=== PATIENT | male | born 1955 | race Caucasian/White ===

== ENCOUNTER 2020-05-01 15:15 | Outpatient (CLI) | payer OTHER, SELFPAY | END 2020-05-01 15:16 | disposition home or self-care (01) | LOC: ANHCOVIDVC 15:15 | DX: Z23 Encounter for immunization (principal) | CPT/HCPCS: 0001A; 91300 ==

== ENCOUNTER 2020-05-22 15:17 | Outpatient (CLI) | payer OTHER, SELFPAY | END 2020-05-22 15:18 | disposition home or self-care (01) | LOC: ANHCOVIDVC 15:17 | DX: Z23 Encounter for immunization (principal) | CPT/HCPCS: 0002A; 91300 ==

== ENCOUNTER 2020-10-12 09:13 | Inpatient (IN) | payer MEDICARE, OTHER, SELFPAY ==
[2020-10-12] VITALS (32 sets, daily range): BP systolic 119–151; BP diastolic 65–109; PULSE 72–91; RESP 12–21; TEMP 36.1–37.4; O2SAT 95–100; BMI 26.6
--- NOTE | ~2020-10-12 | CT_ITS ---
EXAMINATION: CT abdomen pelvis w con DATE: 10/12/2020 12:33 INDICATION: Vomiting. TECHNIQUE: Computed tomography (CT) of the abdomen and pelvis was performed with 100 cc Omnipaque 350 intravenous contrast. The dose-length product was 418.29 mGy-cm. Automated exposure control and iter ative reconstruction technique were employed. COMPARISON: CT dated 03/31/2014 FINDINGS: Trace pericardial effusion. There is hiatal hernia with fluid in the distal esophagus, cons istent with reflux. Heart size normal. No significant vascular abnormality. Fatty infiltration of the liver. There is a cyst of the left hepatic lobe. There is a small hypervasc ular lesion of the spleen measuring 1.3 cm, likely benign. Gallbladder is present. The pancreas, adre nal glands and kidneys are unremarkable. Nonobstructive bowel gas pattern. Colonic diverticulosis wit hout evidence for diverticulitis. There is an accessory splenule. There are radiation therapy implant s in the prostate bed. Small right pleural effusion effusion. Moderate lumbar spondylosis. No free ai r. There is a small amount of fluid in the left paracolic gutter, although there is no significant ad jacent inflammatory changes in the colon. There is calcified nodule in the left pelvis anteriorly, li sangeeta sequela of epiploic appendagitis. IMPRESSION: 1. No acute abdominal abnormality identified. 2: Hiatal hernia with fluid in the distal esophagus, compatible with reflux. 3: Small pericardial and right pleural effusions. Reviewed, dictated and finalized at location A.
--- NOTE | ~2020-10-12 | CT_ITS ---
EXAMINATION: CT brain wo con DATE: 10/12/2020 16:54 INDICATION: Confusion. Severe hyponatremia TECHNIQUE: Computed tomography (CT) of the head was performed without intravenous contrast. Sagittal and coronal reconstructions were performed. The mA was adjusted according to patient size. Iterative reconstruction technique was employed. The dose-length product was 605.33 mGy-cm. COMPARISON: None FINDINGS: No acute intracranial hemorrhage, acute infarction or abnormal extra axial fluid collection. There is mild scattered white matter hypoattenuation consistent with chronic small vessel ischemic disease. V entricles are normal and symmetric. No mass/mass effect. The orbits, paranasal sinuses and mastoid ai r cells are normal. IMPRESSION: 1. Mild scattered white matter hypoattenuation consistent with chronic small vessel ischemic disease. No acute intracranial process. Reviewed, dictated and finalized at location A. IMPRESSION: 1. Mild scattered white matter hypoattenuation consistent with chronic small ve ssel ischemic disease. No acute intracranial process.
--- NOTE | ~2020-10-12 | MR_ITS ---
EXAMINATION: MR brain/brain stem wo con DATE: 10/18/2020 15:08 INDICATION: Weakness of dorsiflexion of the left foot. TECHNIQUE: Magnetic resonance imaging (MRI) of the brain and brainstem was performed without intraven ous contrast. Sequences included sagittal and axial T1-weighted FSE, axial diffusion-weighted FS EPI, axial T2*-weighted GRE, axial T2-weighted FLAIR Propeller, and axial T2-weighted Propeller. Apparent diffusion coefficient (ADC) maps were created. COMPARISON: Head CT 10/12/2020 FINDINGS: There is no intracranial hemorrhage, acute infarction, or abnormal intracranial mass lesion . There are scattered areas of nonspecific increased T2-weighted signal intensity in the cerebral whi te matter, which is within normal limits for the patient's age. The ventricles are normal in size. Th e orbits are normal. The mastoid air cells are normal. There is mild mucosal thickening in the ethmoi d sinuses. IMPRESSION: 1. Normal aging brain. Reviewed, dictated and finalized at location A. IMPRESSION: 1. Normal aging brain.
--- NOTE | ~2020-10-12 | US_ITS ---
EXAMINATION: US venous doppler [facility] DATE: 10/18/2020 14:44 INDICATION: Left calf pain. TECHNIQUE: Grayscale ultrasound images without and with compression and Doppler ultrasound images of the bilateral lower extremity veins were obtained. COMPARISON: None. FINDINGS: The visualized portions of right common femoral vein, profunda (deep) femoral vein, femoral vein, pop liteal vein, peroneal veins, posterior tibial veins, and greater saphenous vein outflow are patent. The visualized portions of left common femoral vein, profunda femoral vein, femoral vein, popliteal v ein, peroneal veins, posterior tibial veins, and greater saphenous vein outflow are patent. IMPRESSION: 1. No deep venous thrombosis. Reviewed, dictated and finalized at location A.
[2020-10-12 09:58] LABS: Basophils Percent Auto 0.2 % (0.2-1.2); Eosinophils Percent Auto 0.1 % (0-4.4); Hematocrit 41.3 % (42.0-52.0); Hemoglobin 15.5 g/dL (14.0-18.0); Immature Granulocyte Absolute 0.08 K/mm3 (0.00-0.031); Immature Granulocyte Percent A 0.4 % (0-0.5); Lymphocytes Absolute Auto 0.76 K/mm3 (0.9-3.2); Lymphocytes Percent Auto 4.1 % (18.3-44.2); Mean Corpuscular HGB Conc 37.5 g/dl (32-36); Mean Corpuscular Hemoglobin 30.5 pg (26-34); Mean Corpuscular Volume 81.3 fl (80-100); Mean Platelet Volume 11.4 fl (7.4-10.4); Monocytes Absolute Auto 1.3 K/mm3 (0.1-0.6); Neutrophils Absolute Auto 16.6 K/mm3 (1.3-6.7); Neutrophils Percent Auto 88.2 % (45.5-73.1); Platelet Count Result 254 k/mm3 (150-375); Red Blood Count 5.08 M/mm3 (4.6-6.20); Red Cell Distribution Width 11.3 % (11.5-14.5); White Blood Count 18.7 K/mm3 (4.5-10.0)
[2020-10-12 10:09] LABS: Alanine Aminotransferase 25 U/L (4-50); Albumin Level 4.6 g/dL (3.5-5.1); Alkaline Phosphatase 79 U/L (38-126); Anion Gap 10 mmol/L (8-16); Aspartate Amino Transferase 39 U/L (17-59); Bilirubin,Total 2.2 mg/dL (0.2-1.3); Blood Urea Nitrogen 12 mg/dL (9-20); Calcium 8.7 mg/dL (8.4-10.2); Carbon Dioxide 20 mmol/L (22-30); Chloride 74 mmol/L (98-107); Estimated CRCL calculation 92 ml/min; Estimated Glomerular Filt Rate > 60; Glucose 142 mg/dL (65-110); Lipase 37 U/L (23-300); Potassium 4.1 mmol/L (3.4-5.0); Sodium 104 mmol/L (137-145)
[2020-10-12] MEDS: SODIUM CHLORIDE 0.9% IV 1,000 ML 999 ML IV CONT (12:00)
--- NOTE | 2020-10-12 12:07 | ECG_ITS ---
Measurements Intervals [place] Rate: 79 P: 58 ID: [id number] QRS: 16 QRSD: 116 T: 30 QT: 382 QTc: 439 Interpretive Statements SINUS RHYTHM ATRIAL AND VENTRICULAR PREMATURE COMPLEXES INTRAVENTRICULAR CONDUCTION DELAY EARLY PRECORDIAL R/S TRANSITION ST ELEVATION IN ANTEROLATERAL LEADS- PROBABLY EARLY REPOLARIZATION ABNORMALITY BASELINE ARTIFACT- I, II, III, AVR, AVL, AVF, V1-V6 BORDERLINE ECG Electronically Signed On 10-13-2020 12:17:17 CDT by Jg Ba D.O.
--- NOTE | 2020-10-12 12:14 | PC.NURSE ---
Called lab, talked to Amaya and added on BMP and Trop I baseline at 12:13
[2020-10-12 12:16] LABS: Add Urine Microscopic? YES; Appearance Urine Clear (Clear); Bilirubin Urine Negative (Negative); Blood Urine 2+ (Negative); Color Urine Yellow (Yellow); Glucose Urine UA 1+ mg/dL (Negative); Ketones Urine 2+ mg/dL (Negative); Leukocyte Esterase Ur Trace LEU/UL (Negative); Mucus Urine Rare /lpf; Nitrate Urine Negative (Negative); Protein Urine 1+ mg/dL (Negative); RBC Urine 51-75 /hpf (0-2); Specific Grav Ur 1.023 (1.001-1.035); Squamous Epithelial Cell Urine Rare /hpf (Few); Urobilinogen Urine Negative mg/dL (<2.0)
--- NOTE | 2020-10-12 12:30 | ED.GENADULT ---
HPI - General Adult General Chief complaint: Nausea/Vomiting/Diarrhea Stated complaint: N/V Time Seen by Provider: 10/12/20 11:49 Source: patient and family History of Present Illness HPI narrative: Patient is a 64 y/o male complaining of nausea and vomiting starting 2 days ago. He states that he is vomiting up some dark, brown material. He vomited 7-8 times during last 24 hours. There is no known alleviating or exacerbating factor. He denies any abdominal pain or diarrhea. Of note, he had Urolift procedure at [facility] 6 days ago. Related Data Allergies Allergy/AdvReac Type Severity Reaction Status Date / Time Beef Containing Products Allergy Severe Anaphylaxis Verified 10/12/20 18:05 Ftqasazfw-Cyanz-6,3-Galactose Allergy Severe Anaphylactic Verified 10/12/20 13:46 (Alph Shock erythromycin base Allergy Unknown Unknown Verified 10/12/20 12:27 Alpha Gall Allergy Severe Anaphylaxis Uncoded 10/12/20 12:27 White Fish Allergy Severe Anaphylactic Uncoded 02/24/18 14:18 Shock Review of Systems Constitutional: Constitutional: Denies chills, Denies fever(s), Denies headache(s) and Denies weakness Eyes: Eyes: Denies blurry vision ENT: Denies headache(s) and Denies neck pain Cardiovascular: Cardiovascular: Denies chest pain and Denies dyspnea Respiratory: Respiratory: Denies cough and Denies dyspnea Gastrointestinal: Gastrointestinal: Denies abdominal pain, Denies diarrhea, Reports nausea and Reports vomiting Genitourinary: Genitourinary: Denies hematuria and Denies dysuria Musculoskeletal: Musculoskeletal: Denies back pain and Denies neck pain Neurologic: Denies headache(s) and Denies weakness [facility] Past Medical History Medical History (Updated 10/12/20 @ 18:07 by Laly Johnson MD) Enlarged prostate Family History Family History Other Asthma Cerebrovascular accident Family history of congestive heart failure Family history of mental disorder Social History Social History Smoking status: Never smoker Alcohol intake: current Drinks per week: 5 Substance use: never Substance use type: does not use Gender identity (if verbalized by the patient): Male Sexual Orientation (if Verbalized by the Patient): Straight or Heterosexual Spiritual care concerns: No Exam Const: General: no acute distress and well developed Orientation/consciousness: oriented to person, oriented to place, oriented to time and patient oriented x3 HENMT: Head: normocephalic Ears: external ears normal General nose exam: Normal external nose present Eyes: General: appearance normal, both eyes and all related structures Conjunctivae: conjunctivae normal Neck: Neck: normal visual inspection and full ROM Chest: Chest palpation & inspection: normal inspection of the chest and no tenderness Resp: Effort & Inspection: normal respiratory effort Auscultation: clear to auscultation bilaterally Cardio: Rate: regular rate Rhythm: regular rhythm GI: GI Palp: No abdominal tenderness and Yes Soft to palpation Skin: General skin exam: normal color and turgor normal Neuro: General: oriented to person, oriented to place, oriented to time and patient oriented x3 Cognition (Neuro): normal cognition Extrem: General: normal to inspection, full ROM and no pedal edema Psych: Appearance: grossly normal Mental Status: mental status grossly normal Affect: normal affect Course Consultations Consultation #1: Discussed with Dr. Springer (urology) at [facility]. He states that patient does not requiring transfer from urology standpoint. Date: 10/12/20 Time: 15:28 Consultation #2: Discussed with INEZ Gonzalez, who agrees to admit. Date: 10/12/20 Time: 16:25 Vital Signs Vital signs: Vital Signs Temperature 36.1 C L 10/12/20 09:21 Pulse Rate 77 10/12/20 09:21 Respiratory Rate 16 10/12/20 09:21 Blood Pressure 142/109 H 08
[2020-10-12 12:34] LABS: Anion Gap 9 mmol/L (8-16); Blood Urea Nitrogen 11 mg/dL (9-20); Calcium 8.7 mg/dL (8.4-10.2); Carbon Dioxide 21 mmol/L (22-30); Chloride 75 mmol/L (98-107); Estimated CRCL calculation 106 ml/min; Estimated Glomerular Filt Rate > 60; Glucose 141 mg/dL (65-110); Potassium 4.1 mmol/L (3.4-5.0); Sodium 105 mmol/L (137-145)
[2020-10-12 12:41] LABS: Troponin I < 0.012 ng/mL (0.000-0.034)
[2020-10-12] MEDS: PANTOPRAZOLE SODIUM IV 40 MG VIAL IV PUSH (12:44)
[2020-10-12] MEDS: ONDANSETRON INJ 4 MG/2 ML VIAL IV PUSH (14:56)
[2020-10-12] MEDS: SODIUM CHLORIDE 0.9% IV 1,000 ML 150 ML IV CONT ×2 (16:00→22:35)
[2020-10-12 16:34] LABS: Troponin I 0.012 ng/mL (0.000-0.034)
--- NOTE | 2020-10-12 17:40 | ADMGEN ---
This patient, Savage Vallecillo, was admitted to IMU Room 204-01 @ 1720. Patient/family oriented to hospital policies and general routines including ID bracelet, bed and alarms, visiting hours, pain management, procedures, bathroom and other care routines, personal items, smoking policy, room service/diet, and visiting hours. IVF infusing at NS 150cc/hr. Information on how to activate the Rapid Response Team has been discussed. Patient/Family are encouraged to report perceived risks to care and to ask questions if they do not understand what they are told or what they should do.
--- NOTE | 2020-10-12 17:46 | PM.IMHP ---
H&P: HPI History of Present Illness Date/Time: 10/12/20 17:46 Savage underwent a UroLift procedure at [facility] on MondayOctober 06 due to his BPH and chronic urinary retention. He also takes daily Flomax. He was encouraged to hydrate well and started drinking approximately 18 oz of water Q 1-1.5 hours according to his and the patient report as well. At this rate of water intake, he could have easily taken in more than 200 oz of water on a daily basis. Savage and his stated that he consumed this amount of water starting from 3:00 p.m. Monday until Monday when he started vomiting, having nausea, and dizziness. He has been nauseated and vomitting for the last 2-3 days, since Monday, with no relief, so he came to the ED today. He was started on IV Protonix b.i.d. at his ED admission. On Monday after the procedure he admitted to having 2-3 bowel movements that were formed but were green in color. Lipase was WNL. He is currently not having any nausea or vomiting or diarrhea. He also stood for myself and the nurse and did not have any dizziness or lightheadedness or difficulty standing to change into his hospital gown. Will check orthostatic BPs. Troponins x2 were normal. Lactic 1.[address] was completed and did not show any acute changes or shifts. I have ordered bed rest and instructed the patient and his how he is at risk to fall and must not get out without assistance at all times. Will continue his sodium chloride IV fluids at 150 mils an hour. His sodium is coming up slowly from 104 at 10:00 a.m. this morning to 107 at 6:00 p.m. tonight. Morning labwork ordered. Traffic Workforce Representative consulted. Patient placed on Telemetry monitoring. Phos and mag also checked. 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 This has been added to his allergy list as well as nursing communication instructions provided. He does best with chicken and turkey, and must avoid all other meats. If exposed to that those substances, he will develop hives, progressing to difficulty breathing and anaphylactic shock. I have added IV Benadryl and Claritin p.r.n. Patient has been admitted as IN PATIENT and to be treated for severe hyponatremia, leukocytosis, nausea vomiting and dehydration. Since he had a recent surgical procedure last week, Blood cultures have been ordered, urine cultures are pending. He is afebrile and not tachycardic.No antibiotics at this time. Chief Complaint: Nausea, Vomiting, Hyponatremia Review of Systems Review of Systems: All systems reviewed & are unremarkable except as noted in HPI and below Constitutional: Constitutional: Reports as per HPI, Denies chills, Denies fever(s), Denies headache(s) and Reports weakness Eyes: Eyes: Reports as per HPI and Denies blurry vision ENT: Reports as per HPI, Reports Normal hearing present, Denies headache(s), Denies epistaxis, Denies nasal congestion, Denies neck pain and Denies tinnitus Cardiovascular: Cardiovascular: Reports as per HPI, Denies chest pain, Denies pedal edema, Denies leg edema, Reports lightheadedness and Denies dyspnea Respiratory: Respiratory: Reports as per HPI, Denies chest congestion, Denies cough, Denies hemoptysis, Denies dyspnea, Denies dyspnea on exertion and Denies wheezing Gastrointestinal: Gastrointestinal: Reports as per HPI, Denies abdominal pain, Denies melena, Denies hematochezia, Denies constipation, Denies diarrhea, Reports nausea, Reports vomiting and Denies hematemesis Genitourinary: Genitourinary: Reports as per HPI, Denies hematuria, Denies dysuria and Denies urinary urgency Musculoskeletal: Musculoskeletal: Reports as per HPI, Denies back pain and Denies neck pain Integumentary/Breasts: Skin/Breast: Reports as per HPI Neurologic: Reports as per HPI, Denies confusion, Denies headache(s), Denies numbness and De
[2020-10-12 18:25] LABS: Lactic Acid Reflex 1.1 mmol/L (0.7-2.1)
[2020-10-12 18:36] LABS: Anion Gap 9 mmol/L (8-16); Blood Urea Nitrogen 10 mg/dL (9-20); Calcium 8.3 mg/dL (8.4-10.2); Carbon Dioxide 19 mmol/L (22-30); Chloride 79 mmol/L (98-107); Estimated CRCL calculation 124 ml/min; Estimated Glomerular Filt Rate > 60; Glucose 94 mg/dL (65-110); Magnesium 1.6 mg/dL (1.6-2.3); Potassium 4.1 mmol/L (3.4-5.0); Sodium 107 mmol/L (137-145)
--- NOTE | 2020-10-12 18:40 | PM.CNNEP ---
Assessment and Plan Assessment and plan (1) Hyponatremia: Code(s): E87.1 - Hypo-osmolality and hyponatremia Status: Acute Assessment and Plan: the patient has a very low sodium level. This is acute on chronic hyponatremia I suspect. The patient had a low sodium back in 2013 suggesting that he has had low sodiums for a long time. Etiology of the chronic hyponatremia is unclear. He is on no medications that would do this. He has no history of cancer. 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 He does not have any pulmonary conditions. The patient has acute hyponatremia on top of the chronic hyponatremia. This may be due to a combination of: Lower threshold for free water retention because of the chronic hyponatremia. excess water drinking after the operative procedure. Discussing the matter with the patient and his , he was drinking about 3 quarts per day. This should be easily tolerated in a healthy person. However because of his former hyponatremia, he probably had a Lower free water excretory capacity. He had discomfort which may cause some pain related hyponatremia. then he had nausea and vomiting with diarrhea leading to dehydration. He has surprisingly few symptoms from this low sodium. So I do not think his sodium was normal 36 hours ago when he started having the GI symptoms. I suspect he started with a mildly low sodium and this worsened over the week of water drinking and then worsened even more with the nausea vomiting and diarrhea. So the gradual reduction of the sodium has resulted in few symptoms. The patient and say that his symptoms are better now than they were this morning after he got some IV fluids. indeed the sodium has come up from 104 to 107. So I think we will continue the IV fluids and check another sodium at 10 and see where we are. I discussed with the patient and with the nurse that if he suddenly makes a huge volume of urine then he would be auto correcting in which case we would have to watch the sodium more carefully and possibly give DDAVP to slow down the correction. (2) Nausea and vomiting: Qualifiers: Vomiting Intractability: unspecified Vomiting type: unspecified Qualified Code(s): R11.2 - Nausea with vomiting, unspecified Code(s): R11.2 - Nausea with vomiting, unspecified Status: Acute Assessment and Plan: The patient has nausea vomiting and diarrhea. Possibly this is a GI bug. Evaluation is underway (3) Enlarged prostate: Code(s): N40.0 - Benign prostatic hyperplasia without lower urinary tract symptoms Status: Inactive Assessment and Plan: he had the Urolift procedure. (4) GERD (gastroesophageal reflux disease): Code(s): K21.9 - Gastro-esophageal reflux disease without esophagitis Status: Acute Assessment and Plan: He is on a PPI (5) Hyperlipidemia: Code(s): E78.5 - Hyperlipidemia, unspecified Status: Acute Assessment and Plan: he is on atorvastatin History of Present Illness Reason for Consult Consult date: 10/12/20 Chief Complaint Chief complaint: hyponatremia History of Present Illness Narrative: Savage is a very pleasant 64-year-old gentleman who has GERD, BPH, hyperlipidemia, hyponatremia. Last Monday the patient had a Urolift procedure. After the procedure the patient was told to drink plenty of fluid. So he drank 18 oz of water every hour for several hours per day. The patient says that he was making a lot of urine. He says the urinary flow has been pretty good. 2 days ago the patient developed nausea vomiting and diarrhea. Yesterday the patient was somewhat shaky and his mental processing was not quite as good as it usually is. He was oriented but it just took a little bit longer for him to think about things. This morning the patient was very shaky and had a tremor. They called the urology group and we
--- NOTE | 2020-10-12 19:59 | PHAR ---
THE FOLLOWING HOME MEDS HAVE BEEN VERIFIED BY PHARMACY PANTOPRAZOLE 40 MG TABS ATORVASTATIN 10 MG TAB QVAR REDIHALER 80 MCG/ACTUATION MONTELUKAST 10 MG TABS TAMSULOSIN 0.4 MG CAP
[2020-10-12] MEDS: PANTOPRAZOLE 40 MG TABLET PO (22:00)
[2020-10-12] MEDS: MONTELUKAST SODIUM 10 MG TABLET PO (22:00)
[2020-10-12] MEDS: MONTELUKAST SODIUM 10 MG TABLET 1 EACH PO (22:34)
[2020-10-12] MEDS: PANTOPRAZOLE 40 MG TABLET 1 EACH PO (22:34)
[2020-10-12 23:25] LABS: Anion Gap 8 mmol/L (8-16); Blood Urea Nitrogen 10 mg/dL (9-20); Calcium 7.9 mg/dL (8.4-10.2); Carbon Dioxide 19 mmol/L (22-30); Chloride 79 mmol/L (98-107); Estimated CRCL calculation 106 ml/min; Estimated Glomerular Filt Rate > 60; Glucose 93 mg/dL (65-110); Potassium 3.7 mmol/L (3.4-5.0); Sodium 106 mmol/L (137-145)
[2020-10-13] VITALS (17 sets, daily range): BP systolic 117–162; BP diastolic 57–79; PULSE 64–90; RESP 14–20; TEMP 36.3–36.9; O2SAT 96–100
[2020-10-13 02:17] LABS: Anion Gap 6 mmol/L (8-16); Blood Urea Nitrogen 11 mg/dL (9-20); Calcium 7.8 mg/dL (8.4-10.2); Carbon Dioxide 21 mmol/L (22-30); Chloride 80 mmol/L (98-107); Estimated CRCL calculation 124 ml/min; Estimated Glomerular Filt Rate > 60; Glucose 97 mg/dL (65-110); Potassium 3.6 mmol/L (3.4-5.0); Sodium 107 mmol/L (137-145)
--- NOTE | 2020-10-13 03:32 | PC.NURSE ---
spoke to Hitesh about NA+ level. Will continue to monitor calling him back if it goes over 110 and decrease fluids to 75mls.
[2020-10-13 04:32] LABS: Thyroid Stimulating Hormone Reflex 0.788 uIU/mL (0.465-4.68)
[2020-10-13 05:05] LABS: Basophils Percent Auto 0.1 % (0.2-1.2); Eosinophils Percent Auto 0.4 % (0-4.4); Hematocrit 35.7 % (42.0-52.0); Hemoglobin 13.2 g/dL (14.0-18.0); Immature Granulocyte Absolute 0.04 K/mm3 (0.00-0.031); Immature Granulocyte Percent A 0.4 % (0-0.5); Lymphocytes Absolute Auto 0.88 K/mm3 (0.9-3.2); Lymphocytes Percent Auto 9.8 % (18.3-44.2); Mean Corpuscular Hemoglobin 30.6 pg (26-34); Mean Corpuscular Volume 82.6 fl (80-100); Mean Platelet Volume 11.6 fl (7.4-10.4); Monocytes Absolute Auto 1.1 K/mm3 (0.1-0.6); Monocytes Percent Auto 12.1 % (2.6-8.5); Neutrophils Absolute Auto 6.9 K/mm3 (1.3-6.7); Neutrophils Percent Auto 77.2 % (45.5-73.1); Platelet Count Result 187 k/mm3 (150-375); Red Blood Count 4.32 M/mm3 (4.6-6.20); Red Cell Distribution Width 11.6 % (11.5-14.5)
[2020-10-13 05:26] LABS: Alanine Aminotransferase 21 U/L (4-50); Alkaline Phosphatase 54 U/L (38-126); Anion Gap 6 mmol/L (8-16); Aspartate Amino Transferase 37 U/L (17-59); Bilirubin,Total 1.3 mg/dL (0.2-1.3); Blood Urea Nitrogen 11 mg/dL (9-20); Calcium 7.5 mg/dL (8.4-10.2); Carbon Dioxide 22 mmol/L (22-30); Chloride 82 mmol/L (98-107); Estimated CRCL calculation 106 ml/min; Estimated Glomerular Filt Rate > 60; Glucose 91 mg/dL (65-110); Phosphorus 2.6 mg/dL (2.5-4.5); Potassium 3.4 mmol/L (3.4-5.0); Sodium 110 mmol/L (137-145)
[2020-10-13] MEDS: SODIUM CHLORIDE 0.45% 1,000 ML 75 ML IV CONT (07:00)
--- NOTE | 2020-10-13 07:00 | ECG_ITS ---
Measurements Intervals [place] Rate: 65 P: 8 GA: 194 QRS: -8 QRSD: 97 T: 32 QT: 384 QTc: 401 Interpretive Statements SINUS RHYTHM POSSIBLE LEFT ATRIAL ENLARGEMENT EARLY PRECORDIAL R/S TRANSITION ST ELEVATION IN DIFFUSE LEADS, PROBABLY EARLY REPOLARIZATION BORDERLINE ECG Electronically Signed On 10-13-2020 10:27:20 CDT by Jg Ba D.O.
--- NOTE | 2020-10-13 07:12 | PM.IMPN ---
Progress Note: A&P Assessment and Plan (1) Status post urological surgery: Code(s): Z98.890 - Other specified postprocedural states Status: Acute Assessment and Plan: He underwent a UroLift procedure at [facility] on MondayOctober 06 due to his BPH and chronic urinary retention. now approximately 6-7 days status post his Uro lift procedure takes daily Flomax. encouraged to hydrate well and started drinking approximately 18 oz of water Q 1-1.5 hours according to his and the patient. Will need to check with patient, when he is to F/U with his Urologist at [facility]. (2) Hyponatremia: Code(s): E87.1 - Hypo-osmolality and hyponatremia Status: Acute Assessment and Plan: He has some degree of chronic hyponatremia as well as he had low serum sodium in 2013. Etiology is unclear. After Urolift was encouraged to hydrate well and started drinking approximately 18 oz of water Q 1-1.5 hours according to his and the patient report as well. At this rate of water intake, he could have easily taken in more than 200 oz of water on a daily basis. Nephrology consult recommendations appreciated continue his sodium chloride IV fluids at 75 an hour. Serum sodium at the time of presentation was was 104. It was 110 early in the morning but went up to 114 later. He was given 500 cc of D5 water and will continue to follow BMP for close monitoring. Q 4 hours BMP checks for next 24-48 hours. Continue to monitor strict intake output record. If he has increased urine output then he will be given DDAVP. (3) Nausea and vomiting: Qualifiers: Vomiting Intractability: unspecified Vomiting type: unspecified Qualified Code(s): R11.2 - Nausea with vomiting, unspecified Code(s): R11.2 - Nausea with vomiting, unspecified Status: Acute Assessment and Plan: Resolved now. Zofran PRN Tolerating diet. strict Intake and output. will need to limit FREE water if Sodium not coming up/improving. Lipase WNL. Lactic acid within normal range. No other abdominal symptoms. Troponins x2 were normal. Head CT was completed and did not show any acute changes or shifts. (4) Leukocytosis: Code(s): D72.829 - Elevated white blood cell count, unspecified Status: Acute Assessment and Plan: White count is elevated to 18.7. The repeat one on 10/13 is 9.0. No fevers and no tachycardia at this time He is status post the Uro lift procedure approximately 6-7 days ago Cultures have been negative so far. Leukocytosis may be reactive He is currently not on any antibiotics as there is no clear source of infection. Additional Plan DVT prophylaxis SCD boot and frequent ambulation GI prophylaxis not indicated Full code Subjective Date/time seen: 10/13/20 07:12 He is feeling much better now. He denied have any further nausea and vomiting. His symptom of fatigue and tiredness and weakness improved as well. He was mildly confused yesterday but not anymore. His serum sodium over corrected to 114 and was given 500 cc of D5 water. Continue to monitor BMP every 4 hours. Review of Systems Review of Systems: A comprehensive review of systems has been reviewed with the patient and most of the symptoms are negative except the one's mentioned above in HPI. 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
[2020-10-13] MEDS: TAMSULOSIN HCL 0.4 MG CAPSULE 1 EACH PO (07:51)
[2020-10-13] MEDS: PANTOPRAZOLE 40 MG TABLET 1 EACH PO ×2 (07:51→20:57)
[2020-10-13] MEDS: ATORVASTATIN 10 MG TABLET 1 EACH PO (07:52)
[2020-10-13 10:34] LABS: Potassium Urine Random 8.8 meq/L; Sodium Urine Random 6 meq/L
[2020-10-13 11:13] LABS: Anion Gap 6 mmol/L (8-16); Blood Urea Nitrogen 12 mg/dL (9-20); Calcium 8.3 mg/dL (8.4-10.2); Carbon Dioxide 26 mmol/L (22-30); Chloride 82 mmol/L (98-107); Estimated CRCL calculation 92 ml/min; Estimated Glomerular Filt Rate > 60; Glucose 78 mg/dL (65-110); Potassium 3.1 mmol/L (3.4-5.0); Sodium 114 mmol/L (137-145)
[2020-10-13] MEDS: DEXTROSE 5% IN WATER 500 ML 250 ML IV CONT ×2 (11:35→16:10)
--- NOTE | 2020-10-13 12:15 | PM.PNNEP ---
Progress Note: A&P Assessment and Plan (1) Hyponatremia: Code(s): E87.1 - Hypo-osmolality and hyponatremia Status: Acute Assessment and Plan: the patient has a very low sodium level. This is acute on chronic hyponatremia I suspect. The patient had a low sodium back in 2013 suggesting that he has had low sodiums for a long time. Etiology of the chronic hyponatremia is unclear. He is on no medications that would do this. He has no history of cancer. He does not have any SVP OF DIGITAL injury or condition. He does not have any pulmonary conditions. The patient has acute hyponatremia on top of the chronic hyponatremia. This may be due to a combination of: Lower threshold for free water retention because of the chronic hyponatremia. excess water drinking after the operative procedure , and dehydration. The few symptoms from the sodium are now better. the initial sodium was 104. It james to 110 by this morning at 4:00 a.m.. Now the sodium is 114 which is 24 hours after the 1st sodium. This is a little bit too much of a correction. So will give D5W 500cc over 2 hours and recheck the sodium after that. Consider DDAVP if he starts to make more urine. (2) Nausea and vomiting: Qualifiers: Vomiting Intractability: unspecified Vomiting type: unspecified Qualified Code(s): R11.2 - Nausea with vomiting, unspecified Code(s): R11.2 - Nausea with vomiting, unspecified Status: Acute Assessment and Plan: The patient had nausea vomiting and diarrhea. Possibly this is a GI bug. This is doing much better (3) Enlarged prostate: Code(s): N40.0 - Benign prostatic hyperplasia without lower urinary tract symptoms Status: Inactive Assessment and Plan: he had the Urolift procedure. (4) GERD (gastroesophageal reflux disease): Code(s): K21.9 - Gastro-esophageal reflux disease without esophagitis Status: Acute Assessment and Plan: He is on a PPI (5) Hyperlipidemia: Code(s): E78.5 - Hyperlipidemia, unspecified Status: Acute Assessment and Plan: he is on atorvastatin Subjective Date/time seen: 10/13/20 12:15 Interval history: patient feels better today. Speech is better and he feels like his thought processes are better as well. Review of Systems Cardiovascular: Cardiovascular: Reports no additional cardiovascular complaints Respiratory: Respiratory: Reports no additional respiratory complaints Gastrointestinal: Gastrointestinal: Reports no additional gastrointestinal complaints Genitourinary: Genitourinary: Reports no additional male genitourinary complaints Exam Narrative: WDWN in NAD skin no rash head ncat lungs clear cor reg no rub abd BS+ nontender and soft ext no edema. Objective Data Vital Signs Vital Signs: Vital Signs - 24 hr 10/12/20 12:53 10/12/20 13:02 10/12/20 13:15 Temperature Pulse Rate Respiratory Rate Blood Pressure Pulse Oximetry 96 96 97 10/12/20 13:37 10/12/20 13:45 10/12/20 14:05 Temperature Pulse Rate Respiratory Rate Blood Pressure Pulse Oximetry 97 98 95 10/12/20 14:15 10/12/20 14:30 10/12/20 14:45 Temperature Pulse Rate 74 79 84 Respiratory Rate 20 20 18 Blood Pressure Pulse Oximetry 95 96 95 10/12/20 15:00 10/12/20 15:27 10/12/20 15:34 Temperature Pulse Rate 79 74 79 Respiratory Rate 19 17 16 Blood Pressure Pulse Oximetry 96 95 95 10/12/20 15:47 10/12/20 16:00 10/12/20 16:15 Temperature Pulse Rate 76 77 74 Respiratory Rate 20 20 16 Blood Pressure Pulse Oximetry 95 97 97 10/12/20 16:16 10/12/20 16:31 10/12/20 16:32 Temperature Pulse Rate 76 81 76 Respiratory Rate 17 18 16 Blood Pressure 142/79 H 145/72 H Pulse Oximetry 97 99 98 10/12/20 16:45 10/12/20 16:46 10/12/20 17:16 Temperature Pulse Rate 76 78 75 Respiratory Rate 17 16 16 Blood Pressure 1
[2020-10-13 15:24] LABS: Anion Gap 7 mmol/L (8-16); Blood Urea Nitrogen 14 mg/dL (9-20); Calcium 8.1 mg/dL (8.4-10.2); Carbon Dioxide 24 mmol/L (22-30); Chloride 84 mmol/L (98-107); Estimated CRCL calculation 92 ml/min; Estimated Glomerular Filt Rate > 60; Glucose 76 mg/dL (65-110); Potassium 3.6 mmol/L (3.4-5.0); Sodium 115 mmol/L (137-145)
[2020-10-13] MEDS: DESMOPRESSIN ACETATE 4 MCG/ML AMP 2 MCG IV PUSH (16:09)
[2020-10-13 19:53] LABS: Sodium 112 mmol/L (137-145)
[2020-10-13] MEDS: MONTELUKAST SODIUM 10 MG TABLET 1 EACH PO (20:57)
[2020-10-14] VITALS (15 sets, daily range): BP systolic 111–148; BP diastolic 55–82; PULSE 59–96; RESP 12–20; TEMP 36.5–37.7; O2SAT 97–99
[2020-10-14 00:36] LABS: Sodium 110 mmol/L (137-145)
[2020-10-14 05:26] LABS: Albumin Level 2.9 g/dL (3.5-5.1); Anion Gap 4 mmol/L (8-16); Blood Urea Nitrogen 11 mg/dL (9-20); Calcium 7.7 mg/dL (8.4-10.2); Carbon Dioxide 23 mmol/L (22-30); Chloride 88 mmol/L (98-107); Estimated CRCL calculation 124 ml/min; Estimated Glomerular Filt Rate > 60; Glucose 88 mg/dL (65-110); Phosphorus 2.5 mg/dL (2.5-4.5); Potassium 2.9 mmol/L (3.4-5.0); Sodium 115 mmol/L (137-145)
[2020-10-14] MEDS: PANTOPRAZOLE 40 MG TABLET 1 EACH PO ×2 (08:30→20:10)
[2020-10-14] MEDS: ATORVASTATIN 10 MG TABLET 1 EACH PO (08:30)
[2020-10-14] MEDS: TAMSULOSIN HCL 0.4 MG CAPSULE 1 EACH PO (08:31)
[2020-10-14 08:41] LABS: Magnesium 1.8 mg/dL (1.6-2.3)
[2020-10-14] MEDS: POTASSIUM CHLORIDE 20 MEQ TABLET 60 MEQ PO (09:32)
[2020-10-14] MEDS: MAGNESIUM SULFATE 3GM/D5W100ML 3 GM/100 ML BAG IVPB (09:32)
[2020-10-14 12:52] LABS: Sodium 119 mmol/L (137-145)
--- NOTE | 2020-10-14 13:13 | PM.IMPN ---
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 After procedure he was told to drink plenty of water and started drinking approximately 18 oz of water Q 1-1.5 hours. On 10/09/20, he developed symptoms of nausea, vomiting for 36 hours and came to the ER for dehydration. He was found to have stable vitals with BP 142/109, HR 77, RR 16, Temp 97F, O2 97% on RA. [place] [address], normal H&H and platelet count. Patient found to be hyponatremic at 104, serum bicarb 20, normal renal function in BUN. Troponins negative x2. Normal lipase. Urinalysis showing signs of dehydration. Urine culture negative for infection. CT abdomen pelvis showed no acute intra abdominal abnormality. It did show hiatal hernia with fluid in the distal esophagus compatible with reflux. CT head showing mild scattered white matter hypoattenuation consistent with chronic small-vessel disease. No acute intracranial process. The patient was admitted into the hospital to be closely monitored with hyponatremia and a consult to Nephrology. Acute on Chronic Hyponatremia He has some degree of chronic hyponatremia as well as he had low serum sodium in 2013. Etiology is unclear. After Urolift was encouraged to hydrate well and started drinking approximately 18 oz of water Q 1-1.5 hours according to his and the patient report as well. At this rate of water intake, he could have easily taken in more than 200 oz of water on a daily basis. Patients sodium increased from 104 on admission to 114 in 24 hours and he was given D5W 500cc over 2 hours with stabolization of his sodium. Sodium this morning 115 and repeat at [address] Proctor Nephrology is ordering DDAVP injection 1 mcg now and we will continue checking sodium every 4 hours. Nephrology's input is greatly appreciated. Continue to monitor strict intake output record. (2) Status post urological surgery: Code(s): Z98.890 - Other specified postprocedural states Status: Acute Assessment and Plan: Patient is to continue taking daily Flomax. No worsening urinary symptoms at this time post op. Will need to check with patient, when he is to F/U with his Urologist at [facility]. (3) Nausea and vomiting: Qualifiers: Vomiting Intractability: unspecified Vomiting type: unspecified Qualified Code(s): R11.2 - Nausea with vomiting, unspecified Code(s): R11.2 - Nausea with vomiting, unspecified Status: Acute Assessment and Plan: Resolved now. Zofran PRN Tolerating diet. strict Intake and output. will need to limit FREE water if Sodium not coming up/improving. Lipase WNL. Lactic acid within normal range. No other abdominal symptoms. Troponins x2 were normal. Head CT was completed and did not show any acute changes or shifts. (4) Leukocytosis: Code(s): D72.829 - Elevated white blood cell count, unspecified Status: Acute Assessment and Plan: White count is elevated to 18.7. The repeat one on 10/13 is 9.0. Most likely from nausea and vomiting prior to arrival. No fevers and no tachycardia at this time He is status post the Uro lift procedure approximately 6-7 days ago Cultures have been negative so far. Leukocytosis may be reactive He is currently not on any antibiotics as there is no clear source of infection. (5) GERD (gastroesophageal reflux disease): Code(s): K21.9 - Gastro-esophageal
[2020-10-14 13:29] LABS: Potassium 3.1 mmol/L (3.4-5.0)
[2020-10-14] MEDS: POTASSIUM CHLORIDE 20 MEQ TABLET 40 MEQ PO (14:18)
[2020-10-14] MEDS: DESMOPRESSIN ACETATE 4 MCG/ML AMP 1 MCG IV PUSH (14:21)
[2020-10-14 17:22] LABS: Sodium 118 mmol/L (137-145)
--- NOTE | 2020-10-14 17:44 | PM.PNNEP ---
Progress Note: A&P Assessment and Plan (1) Hyponatremia: Code(s): E87.1 - Hypo-osmolality and hyponatremia Status: Acute Assessment and Plan: the patient has a very low sodium level. This is acute on chronic hyponatremia I suspect. The patient had a low sodium back in 2013 suggesting that he has had low sodiums for a long time. Etiology of the chronic hyponatremia is unclear. He is on no medications that would do this. He has no history of cancer. 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 He does not have any pulmonary conditions. The patient has acute hyponatremia on top of the chronic hyponatremia. This may be due to a combination of: Lower threshold for free water retention because of the chronic hyponatremia. excess water drinking after the operative procedure , and dehydration. The few symptoms from the sodium are now better. he is trying to auto correct. He was given DDAVP yesterday and I gave another smaller dose today. 10/12 Na 104 10/13 na 110 10/14 Na 115 to 119 in 8 hours and urine picked up so given ddavp 1mcg on no fluid restriction check another sodium this evening. (2) Nausea and vomiting: Qualifiers: Vomiting Intractability: unspecified Vomiting type: unspecified Qualified Code(s): R11.2 - Nausea with vomiting, unspecified Code(s): R11.2 - Nausea with vomiting, unspecified Status: Acute Assessment and Plan: Resolved (3) GERD (gastroesophageal reflux disease): Code(s): K21.9 - Gastro-esophageal reflux disease without esophagitis Status: Acute Assessment and Plan: He is on a PPI (4) Hyperlipidemia: Code(s): E78.5 - Hyperlipidemia, unspecified Status: Acute Assessment and Plan: he is on atorvastatin Subjective Date/time seen: 10/14/20 17:44 Interval history: patient feels better today. eating okay. sitting up in a chair. reading more easily now. Exam Narrative: WDWN in NAD skin no rash or subcu nodules head ncat lungs clear cor reg no rub or gallop abd BS+ nontender and soft ext no edema. Objective Data Vital Signs Vital Signs: Vital Signs - 24 hr 10/13/20 18:00 10/13/20 19:27 10/13/20 19:54 Temperature 36.3 C L Pulse Rate 76 71 74 Respiratory Rate 16 Blood Pressure 134/69 Pulse Oximetry 99 98 10/13/20 20:00 10/13/20 22:00 10/13/20 23:39 Temperature 36.4 C Pulse Rate 70 64 74 Respiratory Rate 20 Blood Pressure 117/66 Pulse Oximetry 96 10/13/20 23:40 10/14/20 00:00 10/14/20 02:00 Temperature Pulse Rate 63 63 Respiratory Rate Blood Pressure 117/66 Pulse Oximetry 10/14/20 04:00 10/14/20 06:00 10/14/20 08:00 Temperature 36.6 C 36.5 C Pulse Rate 66 70 61 Respiratory Rate 20 14 Blood Pressure 148/77 H 126/67 Pulse Oximetry 97 99 10/14/20 09:00 10/14/20 10:00 10/14/20 12:00 Temperature 36.8 C Pulse Rate 67 96 Respiratory Rate 14 Blood Pressure 126/67 126/67 Pulse Oximetry 97 10/14/20 14:00 10/14/20 16:00 Temperature 36.8 C Pulse Rate 66 67 Respiratory Rate 12 Blood Pressure 126/55 L Pulse Oximetry 99 Intake/Output Intake/Output: Intake & Output 10/11/20 10/12/20 10/13/20 10/14/20 23:59 23:59 23:59 23:59 Intake Total 1240 3450 1330 Output Total 1240 9942 5203 Balance 6 -444 -7241 Meds/Results Medications: Active Medications Generic Name Dose Route Start Last Admin Trade Name Freq PRN Reason Stop Dose Admin Al Hydrox/Mg Hydrox/Simethicone 30 ml 10/13/20 09:27 Mag Hydrox/Al Hydrox/Simeth 30 Ml Udc PO Q6H PRN Indigestion Al Hydroxide/Mg Trisilicate 1 tab 10/14/20 13:45 10/14/20 14:18 Aluminum/Magnesium Trisilicate Chew Tab PO 1 tab QID PRN Administration Indigestion Diphenhydramine HCl 25 mg 10/12/20 19:36 Diphenhydramine Hcl Inj 50 Mg/Ml Vial IV PUSH Q4H PRN Hives Loratadine 10 mg
[2020-10-14] MEDS: MONTELUKAST SODIUM 10 MG TABLET 1 EACH PO (20:09)
[2020-10-14 21:14] LABS: Sodium 122 mmol/L (137-145)
[2020-10-14] MEDS: DEXTROSE 5% IN WATER 500 ML 250 ML IVPB (21:54)
[2020-10-15] VITALS (16 sets, daily range): BP systolic 122–151; BP diastolic 63–96; PULSE 56–78; RESP 14–20; TEMP 36.3–37; O2SAT 96–100
[2020-10-15 00:39] LABS: Sodium 116 mmol/L (137-145)
[2020-10-15 05:39] LABS: Albumin Level 3.5 g/dL (3.5-5.1); Anion Gap 7 mmol/L (8-16); Blood Urea Nitrogen 11 mg/dL (9-20); Calcium 8.2 mg/dL (8.4-10.2); Carbon Dioxide 23 mmol/L (22-30); Chloride 89 mmol/L (98-107); Estimated CRCL calculation 106 ml/min; Estimated Glomerular Filt Rate > 60; Glucose 89 mg/dL (65-110); Phosphorus 3.4 mg/dL (2.5-4.5); Potassium 3.8 mmol/L (3.4-5.0); Sodium 119 mmol/L (137-145)
--- NOTE | 2020-10-15 08:26 | PM.IMPN ---
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 After procedure he was told to drink plenty of water and started drinking approximately 18 oz of water Q 1-1.5 hours. On 10/09/20, he developed symptoms of nausea, vomiting for 36 hours and came to the ER for dehydration. He was found to have stable vitals with BP 142/109, HR 77, RR 16, Temp 97F, O2 97% on RA. [place] [address], normal H&H and platelet count. Patient found to be hyponatremic at 104, serum bicarb 20, normal renal function in BUN. Troponins negative x2. Normal lipase. Urinalysis showing signs of dehydration. Urine culture negative for infection. CT abdomen pelvis showed no acute intra abdominal abnormality. It did show hiatal hernia with fluid in the distal esophagus compatible with reflux. CT head showing mild scattered white matter hypoattenuation consistent with chronic small-vessel disease. No acute intracranial process. The patient was admitted into the hospital to be closely monitored with hyponatremia and a consult to Nephrology. Acute on Chronic Hyponatremia He has some degree of chronic hyponatremia as well as he had low serum sodium in 2013. Etiology is unclear. After Urolift was encouraged to hydrate well and started drinking approximately 18 oz of water Q 1-1.5 hours according to his and the patient report as well. At this rate of water intake, he could have easily taken in more than 200 oz of water on a daily basis. 10/15/20: Last night the patients sodium was increasing to quickly and he was given a dose of Dextrose 5% in water. Improved. This morning at 0400 was 119 and [address] Proctor Nephrology who recommends rechecking in 2 hrs at 1000. Continues to need close observation, frequent lab draws and medications based on sodium level. Still needs IMU at this time, unless Dr. Proctor believes he can be moved out of IMU to a floor. Nephrology's input is greatly appreciated. Continue to monitor strict intake output record. (2) Status post urological surgery: Code(s): Z98.890 - Other specified postprocedural states Status: Acute Assessment and Plan: Patient is to continue taking daily Flomax. No worsening urinary symptoms at this time post op. Will need to check with patient, when he is to F/U with his Urologist at [facility]. (3) Nausea and vomiting: Qualifiers: Vomiting Intractability: unspecified Vomiting type: unspecified Qualified Code(s): R11.2 - Nausea with vomiting, unspecified Code(s): R11.2 - Nausea with vomiting, unspecified Status: Acute Assessment and Plan: Resolved now. Zofran PRN Tolerating diet. strict Intake and output. will need to limit FREE water if Sodium not coming up/improving. Lipase WNL. Lactic acid within normal range. No other abdominal symptoms. Troponins x2 were normal. Head CT was completed and did not show any acute changes or shifts. (4) Leukocytosis: Code(s): D72.829 - Elevated white blood cell count, unspecified Status: Acute Assessment and Plan: White count was elevated to 18.7. The repeat one on 10/13 is 9.0. Most likely from nausea and vomiting prior to arrival. No fevers and no tachycardia at this time He is status post the Uro lift procedure approximately 6-7 days ago Cultures have been negative so far. Leukocytosis may be reactive He is currently not on any antibiotics as there is no clear source of infection. _
[2020-10-15 08:35] LABS: Sodium 123 mmol/L (137-145)
[2020-10-15] MEDS: TAMSULOSIN HCL 0.4 MG CAPSULE 1 EACH PO (08:49)
[2020-10-15] MEDS: PANTOPRAZOLE 40 MG TABLET 1 EACH PO ×2 (08:50→20:23)
[2020-10-15] MEDS: ATORVASTATIN 10 MG TABLET 1 EACH PO (08:50)
[2020-10-15 09:52] LABS: Sodium 126 mmol/L (137-145)
--- NOTE | 2020-10-15 11:51 | PM.PNNEP ---
Progress Note: A&P Assessment and Plan (1) Hyponatremia: Code(s): E87.1 - Hypo-osmolality and hyponatremia Status: Acute Assessment and Plan: the patient has a very low sodium level. This is acute on chronic hyponatremia I suspect. The patient had a low sodium back in 2013 suggesting that he has had low sodiums for a long time. Etiology of the chronic hyponatremia is unclear. He is on no medications that would do this. He has no history of cancer. 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 He does not have any pulmonary conditions. The patient has acute hyponatremia on top of the chronic hyponatremia. This may be due to a combination of: Lower threshold for free water retention because of the chronic hyponatremia. excess water drinking after the operative procedure , and dehydration. The few symptoms from the sodium are now better. he is trying to auto correct. He was given DDAVP yesterday and I gave another smaller dose today. 10/12 Na 104 10/13 na 110 10/14 Na 115 to 119 in 8 hours and urine picked up so given ddavp 1mcg 10/15 Na 119 to 123 to 126. autocorrecting. will give ddavp and d5w now. on no fluid restriction check sodium levels every 4 hours (2) Nausea and vomiting: Qualifiers: Vomiting Intractability: unspecified Vomiting type: unspecified Qualified Code(s): R11.2 - Nausea with vomiting, unspecified Code(s): R11.2 - Nausea with vomiting, unspecified Status: Acute Assessment and Plan: Resolved (3) GERD (gastroesophageal reflux disease): Code(s): K21.9 - Gastro-esophageal reflux disease without esophagitis Status: Acute Assessment and Plan: He is on a PPI (4) Hyperlipidemia: Code(s): E78.5 - Hyperlipidemia, unspecified Status: Acute Assessment and Plan: he is on atorvastatin Subjective Date/time seen: 10/15/20 11:51 Interval history: patient feels better today. eating okay. Exam Narrative: WDWN in NAD skin no rash or subcu nodules head ncat lungs clear cor reg no rub or gallop abd BS+ nontender and soft ext no edema. Objective Data Vital Signs Vital Signs: Vital Signs - 24 hr 10/14/20 12:00 10/14/20 14:00 10/14/20 16:00 Temperature 36.8 C 36.8 C Pulse Rate 96 66 67 Respiratory Rate 14 12 Blood Pressure 126/67 126/55 L Pulse Oximetry 97 99 10/14/20 18:00 10/14/20 20:00 10/14/20 20:48 Temperature 36.9 C Pulse Rate 80 74 Respiratory Rate 13 Blood Pressure 111/71 Pulse Oximetry 99 99 10/14/20 22:00 10/14/20 23:52 10/15/20 00:00 Temperature 37.7 C H Pulse Rate 70 65 69 Respiratory Rate 14 Blood Pressure 146/82 H Pulse Oximetry 99 10/15/20 02:00 10/15/20 04:00 10/15/20 05:55 Temperature 37.0 C Pulse Rate 61 63 58 L Respiratory Rate 14 Blood Pressure 151/74 H Pulse Oximetry 96 10/15/20 09:14 Temperature 36.4 C Pulse Rate 56 L Respiratory Rate 20 Blood Pressure 137/64 Pulse Oximetry 98 Intake/Output Intake/Output: Intake & Output 10/12/20 10/13/20 10/14/20 10/15/20 23:59 23:59 23:59 23:59 Intake Total 1240 3450 2770 410 Output Total 1240 1233 9619 7837 Balance 9 -676 -063 -0338 Meds/Results Medications: Active Medications Generic Name Dose Route Start Last Admin Trade Name Freq PRN Reason Stop Dose Admin Al Hydrox/Mg Hydrox/Simethicone 30 ml 10/13/20 09:27 Mag Hydrox/Al Hydrox/Simeth 30 Ml Udc PO Q6H PRN Indigestion Al Hydroxide/Mg Trisilicate 1 tab 10/14/20 13:45 10/15/20 08:48 Aluminum/Magnesium Trisilicate Chew Tab PO 1 tab QID PRN Administration Indigestion Diphenhydramine HCl 25 mg 10/12/20 19:36 Diphenhydramine Hcl Inj 50 Mg/Ml Vial IV PUSH Q4H PRN Hives Loratadine 10 mg 10/12/20 19:36 Loratadine 10 Mg Tablet PO QAM PRN allergy Ondansetron HCl 4 mg 10/12/20 20:01 Ondansetron Inj 4 Mg/2 Ml Vi
[2020-10-15] MEDS: DEXTROSE 5% 1,000 ML 1,000 ML 250 ML IV CONT (12:16)
[2020-10-15] MEDS: DESMOPRESSIN ACETATE 4 MCG/ML AMP 2 MCG IV PUSH (12:16)
[2020-10-15 12:44] LABS: Sodium 126 mmol/L (137-145)
[2020-10-15 17:15] LABS: Sodium 119 mmol/L (137-145)
[2020-10-15] MEDS: MONTELUKAST SODIUM 10 MG TABLET 1 EACH PO (20:23)
[2020-10-15 20:28] LABS: Sodium 118 mmol/L (137-145)
[2020-10-16] VITALS (17 sets, daily range): BP systolic 125–140; BP diastolic 58–84; PULSE 63–86; RESP 14–18; TEMP 36.1–36.9; O2SAT 93–100
[2020-10-16 00:50] LABS: Sodium 117 mmol/L (137-145)
[2020-10-16 01:34] LABS: Osmolality, Urine 168 mOsm/kg (50-1200)
[2020-10-16 04:53] LABS: Sodium 116 mmol/L (137-145)
[2020-10-16 08:27] LABS: Sodium 122 mmol/L (137-145)
[2020-10-16] MEDS: ATORVASTATIN 10 MG TABLET 1 EACH PO (09:12)
[2020-10-16] MEDS: PANTOPRAZOLE 40 MG TABLET 1 EACH PO ×2 (09:12→20:46)
[2020-10-16] MEDS: TAMSULOSIN HCL 0.4 MG CAPSULE 1 EACH PO (09:14)
[2020-10-16 10:48] LABS: Sodium 123 mmol/L (137-145)
[2020-10-16 12:06] LABS: Sodium 123 mmol/L (137-145)
--- NOTE | 2020-10-16 12:30 | PM.IMPN ---
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 After procedure he was told to drink plenty of water and started drinking approximately 18 oz of water Q 1-1.5 hours. On 10/09/20, he developed symptoms of nausea, vomiting for 36 hours and came to the ER for dehydration. He was found to have stable vitals with BP 142/109, HR 77, RR 16, Temp 97F, O2 97% on RA. [place] [address], normal H&H and platelet count. Patient found to be hyponatremic at 104, serum bicarb 20, normal renal function in BUN. Troponins negative x2. Normal lipase. Urinalysis showing signs of dehydration. Urine culture negative for infection. CT abdomen pelvis showed no acute intra abdominal abnormality. It did show hiatal hernia with fluid in the distal esophagus compatible with reflux. CT head showing mild scattered white matter hypoattenuation consistent with chronic small-vessel disease. No acute intracranial process. The patient was admitted into the hospital to be closely monitored with hyponatremia and a consult to Nephrology. Acute on Chronic Hyponatremia He has some degree of chronic hyponatremia as well as he had low serum sodium in 2013. The patient did look back at his records over the last 7 years and his sodium 09/07/20 was 137, otherwise it had been in the normal range from his records and never hyponatremic by his PCP. After Urolift was encouraged to hydrate well and started drinking approximately 18 oz of water Q 1-1.5 hours according to his and the patient report as well. At this rate of water intake, he could have easily taken in more than 200 oz of water on a daily basis. 10/16/20: The patient's sodium continues to fluctuate and is being monitored every 4 hours and the steel cutter has been called with recommendations each time. Patient is otherwise feeling well at this time without any concerns or issues. Continues to need close observation, frequent lab draws and medications based on sodium level. Still needs IMU at this time, unless Dr. Proctor believes he can be moved out of IMU to a floor. Nephrology's input is greatly appreciated. Continue to monitor strict intake output record. (2) Status post urological surgery: Code(s): Z98.890 - Other specified postprocedural states Status: Acute Assessment and Plan: Patient is to continue taking daily Flomax. No worsening urinary symptoms at this time post op. Will need to check with patient, when he is to F/U with his Urologist at [facility]. (3) Nausea and vomiting: Qualifiers: Vomiting Intractability: unspecified Vomiting type: unspecified Qualified Code(s): R11.2 - Nausea with vomiting, unspecified Code(s): R11.2 - Nausea with vomiting, unspecified Status: Acute Assessment and Plan: Resolved now. (4) Leukocytosis: Code(s): D72.829 - Elevated white blood cell count, unspecified Status: Acute Assessment and Plan: White count was elevated to 18.7 on arrival but has since been within normal limits. Patient has no signs of acute infection at this time. No fevers and no tachycardia at this time He is status post the Uro lift procedure approximately 6-7 days ago Cultures have been negative so far. Leukocytosis may be reactive He is currently not on any antibiotics as there is no clear source of infection. (5) GERD (gastroesophage
--- NOTE | 2020-10-16 12:34 | PM.PNNEP ---
Progress Note: A&P Assessment and Plan (1) Hyponatremia: Code(s): E87.1 - Hypo-osmolality and hyponatremia Status: Acute Assessment and Plan: This may be due to a combination of: Lower threshold for free water retention because of the chronic hyponatremia. excess water drinking after the operative procedure , and dehydration. The few symptoms from the sodium are now better. he is trying to auto correct. He was given DDAVP yesterday and I gave another smaller dose today. 10/12 Na 104 10/13 na 110 10/14 Na 115 to 119 in 8 hours and urine picked up so given ddavp 1mcg 10/15 Na 119 to 123 to 126. autocorrecting. will give ddavp and d5w now. 10/16 Na 116 to 122 to 123. watch closely for autocorrection on no fluid restriction check sodium levels every 4 hours if patient starts urinating a lot more he will notify the nurses so they can call me to check a Sodium. (2) Nausea and vomiting: Qualifiers: Vomiting Intractability: unspecified Vomiting type: unspecified Qualified Code(s): R11.2 - Nausea with vomiting, unspecified Code(s): R11.2 - Nausea with vomiting, unspecified Status: Acute Assessment and Plan: Resolved (3) GERD (gastroesophageal reflux disease): Code(s): K21.9 - Gastro-esophageal reflux disease without esophagitis Status: Acute Assessment and Plan: He is on a PPI (4) Hyperlipidemia: Code(s): E78.5 - Hyperlipidemia, unspecified Status: Acute Assessment and Plan: he is on atorvastatin Subjective Date/time seen: 10/16/20 12:34 Interval history: patient feels better today. eating okay. Exam Narrative: WDWN in NAD skin no rash or subcu nodules head ncat lungs clear bilaterally cor reg no rub or gallop abd BS+ nontender and soft ext no edema. Objective Data Vital Signs Vital Signs: Vital Signs - 24 hr 10/15/20 13:34 10/15/20 14:00 10/15/20 16:00 Temperature 36.3 C L Pulse Rate 72 68 72 Respiratory Rate 20 Blood Pressure 122/63 Pulse Oximetry 98 10/15/20 16:45 10/15/20 18:00 10/15/20 19:58 Temperature 36.4 C L 36.6 C Pulse Rate 67 70 72 Respiratory Rate 20 15 Blood Pressure 147/77 H 150/96 H Pulse Oximetry 96 100 10/15/20 20:00 10/15/20 22:00 10/16/20 00:00 Temperature 36.6 C Pulse Rate 74 64 65 Respiratory Rate 16 Blood Pressure 136/74 Pulse Oximetry 96 10/16/20 02:00 10/16/20 04:00 10/16/20 06:00 Temperature 36.1 C L Pulse Rate 63 64 76 Respiratory Rate 16 Blood Pressure 140/74 Pulse Oximetry 93 10/16/20 09:08 Temperature 36.8 C Pulse Rate 76 Respiratory Rate 18 Blood Pressure 132/58 L Pulse Oximetry 100 Intake/Output Intake/Output: Intake & Output 10/13/20 10/14/20 10/15/20 10/16/20 23:59 23:59 23:59 23:59 Intake Total 3450 2770 2009 240 Output Total 4075 2975 4225 1225 [facility] -625 -205 -[phone] -985 Meds/Results Medications: Active Medications Generic Name Dose Route Start Last Admin Trade Name Freq PRN Reason Stop Dose Admin Al Hydrox/Mg Hydrox/Simethicone 30 ml 10/13/20 09:27 Mag Hydrox/Al Hydrox/Simeth 30 Ml Udc PO Q6H PRN Indigestion Al Hydroxide/Mg Trisilicate 1 tab 10/14/20 13:45 10/16/20 05:47 Aluminum/Magnesium Trisilicate Chew Tab PO 1 tab QID PRN Administration Indigestion Diphenhydramine HCl 25 mg 10/12/20 19:36 Diphenhydramine Hcl Inj 50 Mg/Ml Vial IV PUSH Q4H PRN Hives Loratadine 10 mg 10/12/20 19:36 Loratadine 10 Mg Tablet PO QAM PRN allergy Ondansetron HCl 4 mg 10/12/20 20:01 Ondansetron Inj 4 Mg/2 Ml Vial IV PUSH Q6H PRN Nausea And Vomiting Radiology Results: ITS Impressions Abdomen/Pelvis CT 10/12/20 12:36 IMPRESSION: 1. No acute abdominal abnormality identified. 2: Hiatal hernia with fluid in the distal esophagus, compatible with reflux. 3: Small pericardial and right pleural effusi
[2020-10-16 16:39] LABS: Albumin 3.2 g/dL (3.8-4.8); Alpha 1 Globulin 0.3 g/dL (0.2-0.3); Alpha 2 Globulin 0.6 g/dL (0.5-0.9); Beta 1 Globulin 0.4 g/dL (0.4-0.6); Gamma Globulin 0.5 g/dL (0.8-1.7); Interpretation Consistent with; Protein, Total 5.2 g/dL (6.1-8.1)
[2020-10-16 18:22] LABS: Sodium 125 mmol/L (137-145)
[2020-10-16] MEDS: MONTELUKAST SODIUM 10 MG TABLET 1 EACH PO (20:45)
[2020-10-16 21:28] LABS: Sodium 127 mmol/L (137-145)
[2020-10-16] MEDS: DEXTROSE 5% IN WATER 400 ML 200 ML IV CONT (22:26)
[2020-10-16] MEDS: DESMOPRESSIN ACETATE 4 MCG/ML AMP 2 MCG IV PUSH (22:26)
[2020-10-17] VITALS (14 sets, daily range): BP systolic 101–131; BP diastolic 62–77; PULSE 61–88; RESP 12–16; TEMP 36–37; O2SAT 97–99
--- NOTE | 2020-10-17 00:45 | PC.NURSE ---
Patient came to me from the ER with 8/10 chest pain. They gave him 1mg Morphine before bringing him up to the floor. I gave him 3 ntg SL with no relief in chest pain. Dr Ochoa notified. Orders to give and additional milligram of morphine, call the hospitalist and transfer the patient to the ICU for a NTG drip. Dr Potts notified. She will call Dr Baum for admission to the ICU. Patient received the additional morphine and 4 mg of Zofran for nausea.
[2020-10-17 01:05] LABS: Sodium 123 mmol/L (137-145)
[2020-10-17 06:51] LABS: Anion Gap 7 mmol/L (8-16); Blood Urea Nitrogen 16 mg/dL (9-20); Calcium 8.7 mg/dL (8.4-10.2); Carbon Dioxide 25 mmol/L (22-30); Chloride 95 mmol/L (98-107); Estimated CRCL calculation 92 ml/min; Estimated Glomerular Filt Rate > 60; Glucose 94 mg/dL (65-110); Magnesium 1.9 mg/dL (1.6-2.3); Potassium 3.7 mmol/L (3.4-5.0); Sodium 127 mmol/L (137-145)
[2020-10-17] MEDS: ATORVASTATIN 10 MG TABLET 1 EACH PO (09:18)
[2020-10-17] MEDS: TAMSULOSIN HCL 0.4 MG CAPSULE 1 EACH PO (09:18)
[2020-10-17] MEDS: PANTOPRAZOLE 40 MG TABLET 1 EACH PO ×2 (09:19→20:57)
[2020-10-17 10:07] LABS: Sodium 127 mmol/L (137-145)
--- NOTE | 2020-10-17 10:47 | PM.PNNEP ---
Progress Note: A&P Assessment and Plan (1) Hyponatremia: Code(s): E87.1 - Hypo-osmolality and hyponatremia Status: Acute Assessment and Plan: This may be due to a combination of: Lower threshold for free water retention because of the chronic hyponatremia. excess water drinking after the operative procedure , and dehydration. The few symptoms from the sodium are now better. he is trying to auto correct. He was given DDAVP yesterday and I gave another smaller dose today. 10/12 Na 104 10/13 na 110 10/14 Na 115 to 119 in 8 hours and urine picked up so given ddavp 1mcg 10/15 Na 119 to 123 to 126. autocorrecting. will give ddavp and d5w now. 10/16 Na 116 to 122 to 123. watch closely for autocorrection 10/17 Na 127 on no fluid restriction the goal for this morning sodium is unclear. It is supposed to be less than 8 from yesterday morning's level, however his sodium levels were up and down the day before because of the over-correction. So it is hard to know exactly what to use for a baseline. Clearly on the his baseline sodium was 119. So yesterday's would be 126. And today's is 127. So I think that this is an appropriate Sodium Level to start with and watch what happens today. So will try to correct by less than 8 from this morning's level by tomorrow morning at 4:00 a.m.. Long discussion with the patient. continue to check sodium levels every 4 hours (2) Nausea and vomiting: Qualifiers: Vomiting Intractability: unspecified Vomiting type: unspecified Qualified Code(s): R11.2 - Nausea with vomiting, unspecified Code(s): R11.2 - Nausea with vomiting, unspecified Status: Acute Assessment and Plan: Resolved (3) GERD (gastroesophageal reflux disease): Code(s): K21.9 - Gastro-esophageal reflux disease without esophagitis Status: Acute Assessment and Plan: He is on a PPI (4) Hyperlipidemia: Code(s): E78.5 - Hyperlipidemia, unspecified Status: Acute Assessment and Plan: he is on atorvastatin Subjective Date/time seen: 10/17/20 10:47 Interval history: patient feels better today. eating okay. Exam Narrative: WDWN in NAD skin no rash or subcu nodules head ncat lungs clear bilaterally cor reg no rub or gallop abd BS+ nontender and soft ext no edema or cyanosis. Objective Data Vital Signs Vital Signs: Vital Signs - 24 hr 10/16/20 12:00 10/16/20 12:35 10/16/20 14:00 Temperature 36.9 C Pulse Rate 68 74 78 Respiratory Rate 18 Blood Pressure 125/81 Pulse Oximetry 98 10/16/20 16:00 10/16/20 18:00 10/16/20 19:49 Temperature 36.5 C 36.1 C L Pulse Rate 78 84 74 Respiratory Rate 14 15 Blood Pressure 134/84 127/67 Pulse Oximetry 98 100 10/16/20 20:00 10/16/20 20:29 10/16/20 22:00 Temperature Pulse Rate 75 74 74 Respiratory Rate Blood Pressure Pulse Oximetry 100 98 10/16/20 23:32 10/17/20 00:00 10/17/20 02:00 Temperature 36.2 C L Pulse Rate 78 66 64 Respiratory Rate 16 Blood Pressure 131/66 Pulse Oximetry 99 99 10/17/20 04:00 10/17/20 06:00 10/17/20 07:55 Temperature 36.0 C L 36.1 C L Pulse Rate 72 61 68 Respiratory Rate 16 16 Blood Pressure 122/77 131/74 Pulse Oximetry 97 98 Intake/Output Intake/Output: Intake & Output 10/14/20 10/15/20 10/16/20 10/17/20 23:59 23:59 23:59 23:59 Intake Total 2770 2010 720 1000 Output Total 2975 4225 2975 [address] [place] [address] -[id number] -7616 120 Meds/Results Medications: Active Medications Generic Name Dose Route Start Last Admin Trade Name Freq PRN Reason Stop Dose Admin Al Hydrox/Mg Hydrox/Simethicone 30 ml 10/13/20 09:27 Mag Hydrox/Al Hydrox/Simeth 30 Ml Udc PO Q6H PRN Indigestion Al Hydroxide/Mg Trisilicate 1 tab 10/14/20 13:45 10/17/20 10:24 Aluminum/Magnesium Trisilicate Chew Tab PO 1 tab QID PRN Administration Indigestion Diphenhydramine HCl 25
[2020-10-17 12:20] LABS: Sodium 127 mmol/L (137-145)
--- NOTE | 2020-10-17 12:54 | PM.IMPN ---
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 After procedure he was told to drink plenty of water and started drinking approximately 18 oz of water Q 1-1.5 hours. On 10/09/20, he developed symptoms of nausea, vomiting for 36 hours and came to the ER for dehydration. He was found to have stable vitals with BP 142/109, HR 77, RR 16, Temp 97F, O2 97% on RA[place] [address], normal H&H and platelet count. Patient found to be hyponatremic at 104, serum bicarb 20, normal renal function in BUN. Troponins negative x2. Normal lipase. Urinalysis showing signs of dehydration. Urine culture negative for infection. CT abdomen pelvis showed no acute intra abdominal abnormality. It did show hiatal hernia with fluid in the distal esophagus compatible with reflux. CT head showing mild scattered white matter hypoattenuation consistent with chronic small-vessel disease. No acute intracranial process. The patient was admitted into the hospital to be closely monitored with hyponatremia and a consult to Nephrology. Acute on Chronic Hyponatremia He has some degree of chronic hyponatremia as well as he had low serum sodium in 2013. The patient did look back at his records over the last 7 years and his sodium 09/07/20 was 137, otherwise it had been in the normal range from his records and never hyponatremic by his PCP. After Urolift was encouraged to hydrate well and started drinking approximately 18 oz of water Q 1-1.5 hours according to his and the patient report as well. At this rate of water intake, he could have easily taken in more than 200 oz of water on a daily basis. 10/17/20: The patient's sodium improving slowly. Continue to monitor every 4 hours and the pump station operator has been called with recommendations each time. Patient is otherwise feeling well at this time without any concerns or issues. Continues to need close observation, frequent lab draws and medications based on sodium level. Still needs IMU at this time, unless Dr. Proctor believes he can be moved out of IMU to a floor. Nephrology's input is greatly appreciated. Continue to monitor strict intake output record. (2) Status post urological surgery: Code(s): Z98.890 - Other specified postprocedural states Status: Acute Assessment and Plan: Patient is to continue taking daily Flomax. No worsening urinary symptoms at this time post op. Will need to check with patient, when he is to F/U with his Urologist at [facility]. (3) Nausea and vomiting: Qualifiers: Vomiting Intractability: unspecified Vomiting type: unspecified Qualified Code(s): R11.2 - Nausea with vomiting, unspecified Code(s): R11.2 - Nausea with vomiting, unspecified Status: Acute Assessment and Plan: Resolved now. (4) Leukocytosis: Code(s): D72.829 - Elevated white blood cell count, unspecified Status: Acute Assessment and Plan: White count was elevated to 18.7 on arrival but has since been within normal limits. Patient has no signs of acute infection at this time. No fevers and no tachycardia at this time He is status post the Uro lift procedure approximately 6-7 days ago Cultures have been negative so far. Leukocytosis may be reactive He is currently not on any antibiotics as there is no clear source of infection. (5) GERD (gastroesophageal reflu
[2020-10-17 16:41] LABS: Sodium 124 mmol/L (137-145)
[2020-10-17 20:48] LABS: Sodium 125 mmol/L (137-145)
[2020-10-17] MEDS: MONTELUKAST SODIUM 10 MG TABLET 1 EACH PO (20:57)
[2020-10-18] VITALS (14 sets, daily range): BP systolic 111–140; BP diastolic 70–88; PULSE 62–86; RESP 12–20; TEMP 36.2–36.9; O2SAT 95–100
[2020-10-18 01:30] LABS: Sodium 126 mmol/L (137-145)
[2020-10-18 05:55] LABS: Sodium 127 mmol/L (137-145)
[2020-10-18] MEDS: PANTOPRAZOLE 40 MG TABLET 1 EACH PO ×2 (08:48→20:57)
[2020-10-18] MEDS: TAMSULOSIN HCL 0.4 MG CAPSULE 1 EACH PO (08:48)
[2020-10-18] MEDS: ATORVASTATIN 10 MG TABLET 1 EACH PO (08:48)
--- NOTE | 2020-10-18 09:17 | PM.PNNEP ---
Progress Note: A&P Assessment and Plan (1) Hyponatremia: Code(s): E87.1 - Hypo-osmolality and hyponatremia Status: Acute Assessment and Plan: This may be due to a combination of: Lower threshold for free water retention because of the chronic hyponatremia. excess water drinking after the operative procedure , and dehydration. The few symptoms from the sodium are now better. he is trying to auto correct. He was given DDAVP yesterday and I gave another smaller dose today. 10/12 Na 104 10/13 na 110 10/14 Na 115 to 119 in 8 hours and urine picked up so given ddavp 1mcg 10/15 Na 119 to 123 to 126. autocorrecting. will give ddavp and d5w now. 10/16 Na 116 to 122 to 123. watch closely for autocorrection 10/17 Na 127 10/18 Na 127. 8am pending on no fluid restriction Patient says he is starting to make more urine. We will see what the 8:00 a.m. Sodium shows. Goal for tomorrow morning is 134 or less continue to check sodium levels every 4 hours (2) Nausea and vomiting: Qualifiers: Vomiting Intractability: unspecified Vomiting type: unspecified Qualified Code(s): R11.2 - Nausea with vomiting, unspecified Code(s): R11.2 - Nausea with vomiting, unspecified Status: Acute Assessment and Plan: Resolved (3) GERD (gastroesophageal reflux disease): Code(s): K21.9 - Gastro-esophageal reflux disease without esophagitis Status: Acute Assessment and Plan: He is on a PPI (4) Hyperlipidemia: Code(s): E78.5 - Hyperlipidemia, unspecified Status: Acute Assessment and Plan: he is on atorvastatin Subjective Date/time seen: 10/18/20 09:17 Interval history: patient feels better today. eating okay. Sitting up in a chair. Exam Narrative: WDWN in NAD skin no rash head ncat lungs clear to auscultation cor reg no rub or gallop abd BS+ nontender and soft ext no edema or cyanosis. Objective Data Vital Signs Vital Signs: Vital Signs - 24 hr 10/17/20 10:00 10/17/20 12:00 10/17/20 14:00 Temperature 36.9 C Pulse Rate 79 84 74 Respiratory Rate 14 Blood Pressure 101/62 Pulse Oximetry 99 10/17/20 16:00 10/17/20 18:00 10/17/20 19:53 Temperature 37.0 C 36.3 C L Pulse Rate 75 68 78 Respiratory Rate 12 16 Blood Pressure 118/69 114/67 Pulse Oximetry 99 97 10/17/20 20:00 10/17/20 22:00 10/18/20 00:00 Temperature 36.3 C L Pulse Rate 80 68 66 Respiratory Rate 16 Blood Pressure 133/71 Pulse Oximetry 95 10/18/20 01:55 10/18/20 04:00 10/18/20 06:00 Temperature Pulse Rate 64 62 66 Respiratory Rate 16 Blood Pressure 140/81 Pulse Oximetry 97 10/18/20 07:58 Temperature 36.2 C L Pulse Rate 66 Respiratory Rate 16 Blood Pressure 135/72 Pulse Oximetry 97 Intake/Output Intake/Output: Intake & Output 10/15/20 10/16/20 10/17/20 10/18/20 23:59 23:59 23:59 23:59 Intake Total 2009 720 1680 840 Output Total 4225 2975 1405 2120 Balance -2215 -2255 275 -1280 Meds/Results Medications: Active Medications Generic Name Dose Route Start Last Admin Trade Name Freq PRN Reason Stop Dose Admin Al Hydrox/Mg Hydrox/Simethicone 30 ml 10/13/20 09:27 Mag Hydrox/Al Hydrox/Simeth 30 Ml Udc PO Q6H PRN Indigestion Al Hydroxide/Mg Trisilicate 1 tab 10/14/20 13:45 10/18/20 06:01 Aluminum/Magnesium Trisilicate Chew Tab PO 1 tab QID PRN Administration Indigestion Diphenhydramine HCl 25 mg 10/12/20 19:36 Diphenhydramine Hcl Inj 50 Mg/Ml Vial IV PUSH Q4H PRN Hives Loratadine 10 mg 10/12/20 19:36 Loratadine 10 Mg Tablet PO QAM PRN allergy Ondansetron HCl 4 mg 10/12/20 20:01 Ondansetron Inj 4 Mg/2 Ml Vial IV PUSH Q6H PRN Nausea And Vomiting Radiology Results: ITS Impressions Abdomen/Pelvis CT 10/12/20 12:36 IMPRESSION: 1. No acute abdominal abnormality identified. 2: Hiatal hernia with fl
[2020-10-18 10:14] LABS: Sodium 132 mmol/L (137-145)
[2020-10-18 11:24] LABS: Sodium 128 mmol/L (137-145)
--- NOTE | 2020-10-18 11:46 | PC.NURSE ---
Contacted ANGEL Fan regarding patient's complaint of not being able to dorsiflex his left foot. No new orders.
--- NOTE | 2020-10-18 12:40 | PM.IMPN ---
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 After procedure he was told to drink plenty of water and started drinking approximately 18 oz of water Q 1-1.5 hours. On 10/09/20, he developed symptoms of nausea, vomiting for 36 hours and came to the ER for dehydration. He was found to have stable vitals with BP 142/109, HR 77, RR 16, Temp 97F, O2 97% on RA. [place] [address], normal H&H and platelet count. Patient found to be hyponatremic at 104, serum bicarb 20, normal renal function in BUN. Troponins negative x2. Normal lipase. Urinalysis showing signs of dehydration. Urine culture negative for infection. CT abdomen pelvis showed no acute intra abdominal abnormality. It did show hiatal hernia with fluid in the distal esophagus compatible with reflux. CT head showing mild scattered white matter hypoattenuation consistent with chronic small-vessel disease. No acute intracranial process. The patient was admitted into the hospital to be closely monitored with hyponatremia and a consult to Nephrology. Acute on Chronic Hyponatremia He has some degree of chronic hyponatremia as well as he had low serum sodium in 2013. The patient did look back at his records over the last 7 years and his sodium 09/07/20 was 137, otherwise it had been in the normal range from his records and never hyponatremic by his PCP. After Urolift was encouraged to hydrate well and started drinking approximately 18 oz of water Q 1-1.5 hours according to his and the patient report as well. At this rate of water intake, he could have easily taken in more than 200 oz of water on a daily basis. 10/18/20: The patient's sodium improving slowly. Continue to monitor every 4 hours and the sales account coordinator has been called with recommendations each time. Patient is otherwise feeling well at this time without any concerns or issues. Continues to need close observation, frequent lab draws and medications based on sodium level. Still needs IMU at this time, unless Dr. Proctor believes he can be moved out of IMU to a floor. Nephrology's input is greatly appreciated. Continue to monitor strict intake output record. (2) Calf swelling: Code(s): M79.89 - Other specified soft tissue disorders Status: Acute Assessment and Plan: Patient was sitting up in the chair today, with his left leg crossed over his right for 1 hour. Then he got up to walk around and noticed some weakness of his left dorsiflexion. He does report history of calf tightness and having to stretch frequently after walking. He sees a physical therapist an outpatient. He has never some her symptoms to this. Will get venous Dopplers to rule out acute DVT If patient is on a DVT will consider PT therapy evaluation for further recommendations on stretching with therapy Continue monitoring. (3) Status post urological surgery: Code(s): Z98.890 - Other specified postprocedural states Status: Acute Assessment and Plan: Patient is to continue taking daily Flomax. No worsening urinary symptoms at this time post op. Will need to check with patient, when he is to F/U with his Urologist at [facility]. (4) Nausea and vomiting: Qualifiers: Vomiting Intractability: unspecified Vomiting type: unspecified Qualified Code(s): R11.2 - Nausea with vomiting, unspecified Code(s): R11.2 - Nausea with vomiting, unspecified Statu
[2020-10-18 16:46] LABS: Sodium 129 mmol/L (137-145)
[2020-10-18] MEDS: MONTELUKAST SODIUM 10 MG TABLET 1 EACH PO (20:58)
[2020-10-18 21:19] LABS: Sodium 131 mmol/L (137-145)
[2020-10-19] VITALS (15 sets, daily range): BP systolic 116–137; BP diastolic 65–78; PULSE 60–88; RESP 16–20; TEMP 35.6–36.8; O2SAT 96–100
[2020-10-19 00:46] LABS: Sodium 130 mmol/L (137-145)
[2020-10-19 05:39] LABS: Albumin Level 3.6 g/dL (3.5-5.1); Anion Gap 8 mmol/L (8-16); Blood Urea Nitrogen 15 mg/dL (9-20); Calcium 8.8 mg/dL (8.4-10.2); Carbon Dioxide 25 mmol/L (22-30); Chloride 97 mmol/L (98-107); Estimated CRCL calculation 92 ml/min; Estimated Glomerular Filt Rate > 60; Glucose 95 mg/dL (65-110); Phosphorus 4.1 mg/dL (2.5-4.5); Potassium 3.8 mmol/L (3.4-5.0); Sodium 130 mmol/L (137-145)
[2020-10-19 08:08] LABS: Sodium 133 mmol/L (137-145)
[2020-10-19] MEDS: PANTOPRAZOLE 40 MG TABLET 1 EACH PO ×2 (09:45→22:00)
[2020-10-19] MEDS: TAMSULOSIN HCL 0.4 MG CAPSULE 1 EACH PO (09:45)
[2020-10-19] MEDS: ATORVASTATIN 10 MG TABLET 1 EACH PO (09:45)
[2020-10-19 12:03] LABS: Sodium 128 mmol/L (137-145)
--- NOTE | 2020-10-19 12:52 | PCDIET ---
Weekly nutritional screen. Patient is tolerating current diet with adequate intake. No weight loss reported. No nutritional needs at this time.
--- NOTE | 2020-10-19 13:41 | PM.IMPN ---
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 After procedure he was told to drink plenty of water and started drinking approximately 18 oz of water Q 1-1.5 hours. On 10/09/20, he developed symptoms of nausea, vomiting for 36 hours and came to the ER for dehydration. He was found to have stable vitals with BP 142/109, HR 77, RR 16, Temp 97F, O2 97% on RA. [place] [address], normal H&H and platelet count. Patient found to be hyponatremic at 104, serum bicarb 20, normal renal function in BUN. Troponins negative x2. Normal lipase. Urinalysis showing signs of dehydration. Urine culture negative for infection. CT abdomen pelvis showed no acute intra abdominal abnormality. It did show hiatal hernia with fluid in the distal esophagus compatible with reflux. CT head showing mild scattered white matter hypoattenuation consistent with chronic small-vessel disease. No acute intracranial process. The patient was admitted into the hospital to be closely monitored with hyponatremia and a consult to Nephrology. Acute on Chronic Hyponatremia He has some degree of chronic hyponatremia as well as he had low serum sodium in 2013. The patient did look back at his records over the last 7 years and his sodium 09/07/20 was 137, otherwise it had been in the normal range from his records and never hyponatremic by his PCP. After Urolift was encouraged to hydrate well and started drinking approximately 18 oz of water Q 1-1.5 hours according to his and the patient report as well. At this rate of water intake, he could have easily taken in more than 200 oz of water on a daily basis. 10/19/20: The patient's sodium improving slowly, but decreased again from 0800 133 to 1200 128. in this 4 hour time frame the patient drank about 500 cc of fluids, worried about delusional changes. Patient is recording his fluid intake to help us better determine the cause of fluctuation. Rechecking again at 1530 and consider discharge if back in the low 130s. Will talk with Nephrology for further evaluation and recommendations. Patient would like daily BMP checks upon discharge for close monitoring. Will talk with Nephrology. Patient is otherwise feeling well at this time without any concerns or issues. Continues to need close observation, frequent lab draws and medications based on sodium level. Still needs IMU at this time, unless Dr. Proctor believes he can be moved out of IMU to a floor. Nephrology's input is greatly appreciated. Continue to monitor strict intake output record. (2) Calf swelling: Code(s): M79.89 - Other specified soft tissue disorders Status: Acute Assessment and Plan: Patient was sitting up in the chair today, with his left leg crossed over his right for 1 hour. Then he got up to walk around and noticed some weakness of his left dorsiflexion. He does report history of calf tightness and having to stretch frequently after walking. He sees a physical therapist an outpatient. He has never some her symptoms to this. Venous Dopplers showed NO DVT MRI Brain showed normal aging brain. No acute abnormality. Patient does report a long history of back problems but usually his symptoms distribute with radiation of pain down the right leg. He has never had symptoms to his left leg and +his symptoms are only localized to his medial left foot with pending needle feeling as well as weak dorsiflexion. He has no improvement or worsening symptoms since yesterday. PT has been ordered for further
--- NOTE | 2020-10-19 15:41 | PM.PNNEP ---
Progress Note: A&P Assessment and Plan (1) Hyponatremia: Code(s): E87.1 - Hypo-osmolality and hyponatremia Status: Acute Assessment and Plan: multifactorial: - lower threshold for free water retention - excess water drinkinng post-operatively - dehydration all symptoms from admission are resolved sodium appears to be stabilizing without any specific intervention did require DDAVP due to overcorrection continue supportive therapy (2) Nausea and vomiting: Qualifiers: Vomiting Intractability: unspecified Vomiting type: unspecified Qualified Code(s): R11.2 - Nausea with vomiting, unspecified Code(s): R11.2 - Nausea with vomiting, unspecified Status: Acute Assessment and Plan: resolved at this time (3) GERD (gastroesophageal reflux disease): Code(s): K21.9 - Gastro-esophageal reflux disease without esophagitis Status: Acute Assessment and Plan: stable on PPI (4) Hyperlipidemia: Code(s): E78.5 - Hyperlipidemia, unspecified Status: Acute Assessment and Plan: continue statin Long and extensvie discussion (> 20 minutes) with patient and his regarding his sodium levels as well as intervention post-discharge to ensure this does not happen again. They both voiced understanding. Plan outpatient labs and follow-up with Dr. Proctor following discharge. Will continue to follow. Subjective Date/time seen: 10/19/20 15:41 Chart reviewed -- assuming care from Dr. Proctor; he states he is feeling reasonably well at the time of my visit; his was at bedside and we discussed the situation in detail; no other acute complaints/problems aside for the left foot weakness; no events overnight or earlier this AM. Exam Narrative: General: WD/WN male in NAD Heart: normal S1 and S2; no rub Lungs: clear to auscultation Abdomen: soft, nontender, nondistended, positive bowel sounds Extremities: no cyanosis or clubbing; no edema Skin: warm and dry Objective Data Vital Signs Vital Signs: Vital Signs Temp Pulse Resp BP Pulse Ox 10/19/20 14:00 66 10/19/20 12:48 35.6 C L 72 20 137/69 100 10/19/20 12:00 73 10/19/20 10:00 67 10/19/20 08:00 36.8 C 84 16 118/78 100 10/19/20 06:00 60 10/19/20 04:00 36.4 C 74 16 132/70 96 10/19/20 02:00 69 10/19/20 00:00 84 10/18/20 23:40 36.6 C 86 20 133/88 99 10/18/20 22:00 69 10/18/20 20:00 36.4 C 84 18 111/70 97 Intake/Output Intake/Output: Intake & Output 10/16/20 10/17/20 10/18/20 10/19/20 23:59 23:59 23:59 23:59 Intake Total 720 1680 1320 1140 Output Total 2975 1405 3870 1690 Balance -6650 357 -7230 -898 Meds/Results Medications: Active Medications Generic Name Dose Route Start Last Admin Trade Name Freq PRN Reason Stop Dose Admin Al Hydrox/Mg Hydrox/Simethicone 30 ml 10/13/20 09:27 Mag Hydrox/Al Hydrox/Simeth 30 Ml Udc PO Q6H PRN Indigestion Al Hydroxide/Mg Trisilicate 1 tab 10/14/20 13:45 10/19/20 12:11 Aluminum/Magnesium Trisilicate Chew Tab PO 1 tab QID PRN Administration Indigestion Diphenhydramine HCl 25 mg 10/12/20 19:36 Diphenhydramine Hcl Inj 50 Mg/Ml Vial IV PUSH Q4H PRN Hives Loratadine 10 mg 10/12/20 19:36 Loratadine 10 Mg Tablet PO QAM PRN allergy Ondansetron HCl 4 mg 10/12/20 20:01 Ondansetron Inj 4 Mg/2 Ml Vial IV PUSH Q6H PRN Nausea And Vomiting Radiology Results: ITS Impressions Abdomen/Pelvis CT 10/12/20 12:36 IMPRESSION: 1. No acute abdominal abnormality identified. 2: Hiatal hernia with fluid in the distal esophagus, compatible with reflux. 3: Small pericardial and right pleural effusions. Head CT 10/12/20 16:56 IMPRESSION: 1. Mild scattered white matter hypoattenuation consistent with chronic small vessel ischemic disease. No acu
[2020-10-19 16:23] LABS: Sodium 129 mmol/L (137-145)
[2020-10-19 20:46] LABS: Sodium 133 mmol/L (137-145)
[2020-10-19] MEDS: MONTELUKAST SODIUM 10 MG TABLET 1 EACH PO (22:00)
[2020-10-20] VITALS (8 sets, daily range): BP systolic 110–137; BP diastolic 63–79; PULSE 64–84; RESP 14–16; TEMP 36.5–36.8; O2SAT 97–99
[2020-10-20 00:31] LABS: Sodium 132 mmol/L (137-145)
[2020-10-20 05:37] LABS: Anion Gap 7 mmol/L (8-16); Blood Urea Nitrogen 19 mg/dL (9-20); Calcium 8.8 mg/dL (8.4-10.2); Carbon Dioxide 26 mmol/L (22-30); Chloride 102 mmol/L (98-107); Estimated CRCL calculation 81 ml/min; Estimated Glomerular Filt Rate > 60; Glucose 100 mg/dL (65-110); Potassium 3.9 mmol/L (3.4-5.0); Sodium 135 mmol/L (137-145)
[2020-10-20] MEDS: PANTOPRAZOLE 40 MG TABLET 1 EACH PO (08:22)
[2020-10-20] MEDS: TAMSULOSIN HCL 0.4 MG CAPSULE 1 EACH PO (08:22)
[2020-10-20] MEDS: ATORVASTATIN 10 MG TABLET 1 EACH PO (08:23)
[2020-10-20 08:51] LABS: Sodium 134 mmol/L (137-145)
--- NOTE | 2020-10-20 09:42 | WPDNEURCNPN ---
Assessment and Plan Additional Plan extensor digitorum longus weakness he will benefit from the EMG and nerve conduction study as an outpatient which I have advised him he is being discharged will continue with the process if any further question arises please do not hesitate to contact Consult date: 10/20/20 Time Seen: 09:30 HPI: Savage Vallecillo is a 64 year old male 64 years old right-handed male has been admitted to the [facility] subsequent to him being on through year old live procedure at [facility] on MondayOctober 06 for benign prostatic hypertrophy and chronic urinary retention in addition to the findings of hyponatremia which has been taking care and patient is in the process of being discharged today. Neuro consultation has been obtained because patient is unable to move his left big toe upward Review of Systems Review of Systems: All systems reviewed & are unremarkable except as noted in HPI and below PMFSH Past Medical History Medical History Enlarged prostate GERD (gastroesophageal reflux disease) Hyperlipidemia Family History Family History Other Asthma Cerebrovascular accident Family history of congestive heart failure Family history of mental disorder Social History Social History Smoking status: Never smoker Alcohol intake: current Drinks per week: 5 Substance use: never Substance use type: does not use Gender identity (if verbalized by the patient): Male Sexual Orientation (if Verbalized by the Patient): Straight or Heterosexual Spiritual care concerns: No Meds Home Medications and Allergies Home Medications Medication Instructions Recorded Confirmed Type atorvastatin 10 mg PO DAILY 10/12/20 10/12/20 History beclomethasone dipropionate [Qvar] See Rx Instructions .ROUTE .COMPLEX 10/12/20 10/12/20 History montelukast [Singulair] 10 mg PO HS 10/12/20 10/12/20 History pantoprazole 40 mg PO Q12H 10/12/20 10/12/20 History tamsulosin 0.4 mg PO DAILY 10/12/20 10/12/20 History Allergies Allergy/AdvReac Type Severity Reaction Status Date / Time Beef Containing Products Allergy Severe Anaphylaxis Verified 10/12/20 18:05 Bheymdsyn-Fjhty-4,3-Galactose Allergy Severe Anaphylactic Verified 10/12/20 13:46 (Alph Shock heparin Allergy Severe Anaphylactic Verified 10/12/20 19:48 Shock erythromycin base Allergy Unknown Unknown Verified 10/12/20 12:27 Alpha Gall Allergy Severe Anaphylaxis Uncoded 10/12/20 12:27 White Fish Allergy Severe Anaphylactic Uncoded 02/24/18 14:18 Shock Vital Signs Vital Signs - 24 hr 10/19/20 10:00 10/19/20 12:00 10/19/20 12:48 Temperature 35.6 C L Pulse Rate 67 73 72 Respiratory Rate 20 Blood Pressure 137/69 Pulse Oximetry 100 10/19/20 14:00 10/19/20 16:00 10/19/20 17:17 Temperature 35.8 C L Pulse Rate 66 72 69 Respiratory Rate 20 Blood Pressure 121/74 Pulse Oximetry 100 10/19/20 18:00 10/19/20 20:00 10/19/20 22:00 Temperature 36.6 C Pulse Rate 69 88 74 Respiratory Rate 18 Blood Pressure 116/69 Pulse Oximetry 100 10/19/20 23:54 10/20/20 00:00 10/20/20 02:00 Temperature 36.7 C Pulse Rate 66 68 67 Respiratory Rate 18 Blood Pressure 132/65 Pulse Oximetry 98 10/20/20 03:28 10/20/20 04:00 10/20/20 06:00 Temperature 36.5 C Pulse Rate 70 64 64 Respiratory Rate 16 Blood Pressure 137/79 Pulse Oximetry 97 10/20/20 08:00 10/20/20 09:17 Temperature 36.8 C Pulse Rate 83 Respiratory Rate 14 Blood Pressure 110/63 Pulse Oximetry 99 Exam Narrative: examination this morning revealed him to be awake alert cooperative anxious ready to be discharged his speech nor dysphasic not dysarthric not dysphonic, head normocephalic, ear nose throat exam normal neck is supple with no bruit heart regular with no murm
--- NOTE | 2020-10-20 09:58 | PM.PNNEP ---
Progress Note: A&P Assessment and Plan (1) Hyponatremia: Code(s): E87.1 - Hypo-osmolality and hyponatremia Status: Acute Assessment and Plan: multifactorial: - lower threshold for free water retention - excess water drinkinng post-operatively - dehydration all symptoms from admission are resolved sodium appears to be stabilizing without any specific intervention did require DDAVP due to overcorrection continue supportive therapy (2) Nausea and vomiting: Qualifiers: Vomiting Intractability: unspecified Vomiting type: unspecified Qualified Code(s): R11.2 - Nausea with vomiting, unspecified Code(s): R11.2 - Nausea with vomiting, unspecified Status: Acute Assessment and Plan: resolved at this time (3) GERD (gastroesophageal reflux disease): Code(s): K21.9 - Gastro-esophageal reflux disease without esophagitis Status: Acute Assessment and Plan: stable on PPI (4) Hyperlipidemia: Code(s): E78.5 - Hyperlipidemia, unspecified Status: Acute Assessment and Plan: continue statin Plan outpatient labs and follow-up with Dr. Proctor following discharge; not opposed to discharge from renal perspective today. Will continue to follow. Subjective Date/time seen: 10/20/20 09:58 Appears to be doing quite well at the time of my visit; no issues/events overnight or earlier this AM; sodium continues to improve as noted by testing in the last 24 hours; no apparent distress voiced. Exam Narrative: General: WD/WN male in NAD Heart: normal S1 and S2; no rub Lungs: clear to auscultation Abdomen: soft, nontender, nondistended, positive bowel sounds Extremities: no cyanosis or clubbing; no edema Skin: warm and intact Objective Data Vital Signs Vital Signs: Vital Signs Temp Pulse Resp BP Pulse Ox 10/20/20 09:17 36.8 C 10/20/20 08:00 84 14 110/63 99 10/20/20 06:00 64 10/20/20 04:00 64 10/20/20 03:28 36.5 C 70 16 137/79 97 10/20/20 02:00 67 10/20/20 00:00 68 10/19/20 23:54 36.7 C 66 18 132/65 98 10/19/20 22:00 74 10/19/20 20:00 36.6 C 88 18 116/69 100 10/19/20 18:00 69 10/19/20 17:17 35.8 C L 69 20 121/74 100 10/19/20 16:00 72 10/19/20 14:00 66 10/19/20 12:48 35.6 C L 72 20 137/69 100 10/19/20 12:00 73 Intake/Output Intake/Output: Intake & Output 10/17/20 10/18/20 10/19/20 10/20/20 23:59 23:59 23:59 23:59 Intake Total 1680 1320 1390 740 Output Total 1405 3870 1695 940 Balance 889 -8850 -079 -655 Meds/Results Medications: Active Medications Generic Name Dose Route Start Last Admin Trade Name Freq PRN Reason Stop Dose Admin Al Hydrox/Mg Hydrox/Simethicone 30 ml 10/13/20 09:27 Mag Hydrox/Al Hydrox/Simeth 30 Ml Udc PO Q6H PRN Indigestion Al Hydroxide/Mg Trisilicate 1 tab 10/14/20 13:45 10/20/20 06:34 Aluminum/Magnesium Trisilicate Chew Tab PO 1 tab QID PRN Administration Indigestion Diphenhydramine HCl 25 mg 10/12/20 19:36 Diphenhydramine Hcl Inj 50 Mg/Ml Vial IV PUSH Q4H PRN Hives Loratadine 10 mg 10/12/20 19:36 Loratadine 10 Mg Tablet PO QAM PRN allergy Ondansetron HCl 4 mg 10/12/20 20:01 Ondansetron Inj 4 Mg/2 Ml Vial IV PUSH Q6H PRN Nausea And Vomiting Radiology Results: ITS Impressions Abdomen/Pelvis CT 10/12/20 12:36 IMPRESSION: 1. No acute abdominal abnormality identified. 2: Hiatal hernia with fluid in the distal esophagus, compatible with reflux. 3: Small pericardial and right pleural effusions. Head CT 10/12/20 16:56 IMPRESSION: 1. Mild scattered white matter hypoattenuation consistent with chronic small vessel ischemic disease. No acute intracranial process. Venous Doppler Study 10/18/20 15:00 IMPRESSION: 1. No deep venous thrombosis. B
--- NOTE | 2020-10-20 10:41 | PM.DS ---
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 After procedure he was told to drink plenty of water and started drinking approximately 18 oz of water Q 1-1.5 hours. On 10/09/20, he developed symptoms of nausea, vomiting for 36 hours and came to the ER for dehydration. He was found to have stable vitals with BP 142/109, HR 77, RR 16, Temp 97F, O2 97% [place] [address], normal H&H and platelet count. Patient found to be hyponatremic at 104, serum bicarb 20, normal renal function in BUN. Troponins negative x2. Normal lipase. Urinalysis showing signs of dehydration. Urine culture negative for infection. CT abdomen pelvis showed no acute intra abdominal abnormality. It did show hiatal hernia with fluid in the distal esophagus compatible with reflux. CT head showing mild scattered white matter hypoattenuation consistent with chronic small-vessel disease. No acute intracranial process. The patient was admitted into the hospital to be closely monitored with hyponatremia and a consult to Nephrology. Acute on Chronic Hyponatremia He has some degree of chronic hyponatremia as well as he had low serum sodium in 2013. The patient did look back at his records over the last 7 years and his sodium 09/07/20 was 137, otherwise it had been in the normal range from his records and never hyponatremic by his PCP. After Urolift was encouraged to hydrate well and started drinking approximately 18 oz of water Q 1-1.5 hours according to his and the patient report as well. At this rate of water intake, he could have easily taken in more than 200 oz of water on a daily basis. 10/19/20: The patient's sodium improving slowly, but decreased again from 0800 133 to 1200 128. in this 4 hour time frame the patient drank about 500 cc of fluids, worried about delusional changes. Patient is recording his fluid intake to help us better determine the cause of fluctuation. Rechecking again at 1530 and consider discharge if back in the low 130s. Will talk with Nephrology for further evaluation and recommendations. Patient would like daily BMP checks upon discharge for close monitoring. Will talk with Nephrology. Patient is otherwise feeling well at this time without any concerns or issues. 10/20 Na 135 and patient feels well. Mentation and ambulation and elimination all at baseline. Outpatient lab in 3 days. (2) Calf swelling: Code(s): M79.89 - Other specified soft tissue disorders Status: Acute Assessment and Plan: Patient was sitting up in the chair today, with his left leg crossed over his right for 1 hour. Then he got up to walk around and noticed some weakness of his left dorsiflexion. He does report history of calf tightness and having to stretch frequently after walking. He sees a physical therapist an outpatient. He has never some her symptoms to this. Venous Dopplers showed NO DVT MRI Brain showed normal aging brain. No acute abnormality. Patient does report a long history of back problems but usually his symptoms distribute with radiation of pain down the right leg. He has never had symptoms to his left leg and +his symptoms are only localized to his medial left foot with pending needle feeling as well as weak dorsiflexion. He has no improvement or worsening symptoms since yesterday. Foot drop to f/u with EMG/NCV and neurology as outpatient (3) Status post urologica
== END 2020-10-20 11:45 | disposition home or self-care (01) | DRG 641 ==
LOC: ANHED 12:27 → ANHIMU 17:20
PROVIDERS: Emergency Medicine; Internal Medicine Nephrology; Nurse Practitioner; Admitting Provider Internal Medicine; Emergency Provider Emergency Medicine; PCP Family Medicine; Visit Provider Physician Assistant
DX: E87.1 Hypo-osmolality and hyponatremia (principal); E86.0 Dehydration; E87.6 Hypokalemia; M79.89 Other specified soft tissue disorders; D72.829 Elevated white blood cell count, unspecified; K21.9 Gastro-esophageal reflux disease without esophagitis; E78.5 Hyperlipidemia, unspecified; N40.0 Benign prostatic hyperplasia without lower urinary tract symptoms; Z98.890 Other specified postprocedural states; Z79.899 Other long term (current) drug therapy; Z91.018 Allergy to other foods
CPT/HCPCS: 36415; 70450; 70551; 74177; 80048; 80053; 80069; 81001; 82533; 83605; 83690; 83735; 83930; 83935; 84100; 84132; 84133; 84155; 84165; 84295; 84300; 84443; 84484; 85025; 87040; 87086; 93005; 93970; 94640; 96361; 96374; 96375; 99285; A9270; C9113; J2405; J2597; J3475; J7030; J7060; J7070; Q9967

== ENCOUNTER 2020-12-24 09:38 | Outpatient (CLI) | payer OTHER, MEDICARE, SELFPAY ==
--- NOTE | 2020-12-24 11:00 | NEURO_ITS ---
Impression: # Patient was admitted to the hospital 2 months ago with severe hyponatremia. Found to have left foot drop which has now improved. # Normal nerve conduction study. # Normal needle/EMG exam without neurogenic changes. # Clinical correlation recommended. Nerve Conduction Studies Anti Sensory Summary Table Stim Site NR Peak (ms) P-T Amp (?V) Site1 Site2 Delta-P (ms) Dist (cm) Jaime (m/s) Left Sup Fibular Anti Sensory (Ant Lat Mall) 14 cm 3.8 13.6 14 cm Ant Lat Mall 3.8 16.0 42 Right Sup Fibular Anti Sensory (Ant Lat Mall) 14 cm 3.8 19.1 14 cm Ant Lat Mall 3.8 16.0 42 Left Sural Anti Sensory (Lat Mall) Calf 4.5 5.0 Calf Lat Mall 4.5 18.0 40 Right Sural Anti Sensory (Lat Mall) Calf 3.9 14.6 Calf Lat Mall 3.9 16.0 41 Motor Summary Table Stim Site NR Onset (ms) O-P Amp (mV) Site1 Site2 Delta-0 (ms) Dist (cm) Jaime (m/s) Left Peroneal Motor (Vastus Med) Ankle 5.2 1.3 Popit Ankle 9.6 43.0 45 Popit 14.8 0.8 Right Peroneal Motor (Vastus Med) Ankle 4.1 2.7 Popit Ankle 8.9 41.0 46 Popit 13.0 2.1 Left Tibial Motor (Abd Felix Brev) Ankle 4.8 0.8 Knee Ankle 9.6 46.0 48 Knee 14.4 1.0 Right Tibial Motor (Abd Felix Brev) Ankle 5.1 6.0 Knee Ankle 9.7 44.0 45 Knee 14.8 4.6 F Wave Studies NR F-Lat (ms) L-R F-Lat (ms) Left Peroneal (Mrkrs) (EDB) 54.80 0.00 Right Peroneal (Mrkrs) (EDB) 54.80 0.00 Left Tibial (Mrkrs) (Abd Hallucis) 55.99 0.36 Right Tibial (Mrkrs) (Abd Hallucis) 55.63 0.36 EMG Side Muscle Nerve Root Ins Act Fibs Amp Dur Recrt Comment Right AntTibialis Dp Br Fibular L4-5 Nml Nml Nml Nml Nml Right Gastroc Tibial S1-2 Nml Nml Nml Nml Nml Right Fibularis Long Sup Br Fibular L5-S1 Nml Nml Nml Nml Nml Right Flex Dig Long Tibial L5-S2 Nml Nml Nml Nml Nml Right Ext Dig Brev Dp Br Fibular L5, S1 Nml Nml Nml Nml Nml Left AntTibialis Dp Br Fibular L4-5 Nml Nml Nml Nml Nml Left Gastroc Tibial S1-2 Nml Nml Nml Nml Nml Left Fibularis Long Sup Br Fibular L5-S1 Nml Nml Nml Nml Nml Left Flex Dig Long Tibial L5-S2 Nml Nml Nml Nml Nml Left Ext Dig Brev Dp Br Fibular L5, S1 Nml Nml Nml Nml Nml MTDD
== END 2020-12-24 09:39 | disposition home or self-care (01) ==
LOC: ANHNEURO 09:39
PROVIDERS: Visit Provider Psychiatry & Neurology Neurology
DX: M21.379 Foot drop, unspecified foot (principal)
CPT/HCPCS: 95886; 95910

== ENCOUNTER 2024-02-22 14:14 | Emergency (ER) | payer MEDICARE, SELFPAY ==
[2024-02-22 14:40] VITALS: BP 148/85; PULSE 97; RESP 16; TEMP 37.3; O2SAT 99
--- NOTE | 2024-02-22 15:00 | ED_ITS ---
HPI - URI/Sore Throat General Chief Complaint: Upper Respiratory Infection Stated Complaint: Chest tightness, cough, asthma flare up symptoms Time Seen by Provider: 02/22/24 15:00 Source: patient Mode of arrival: ambulatory Limitations: no limitations History of Present Illness HPI Narrative: Savage is a 60-year-old male patient presenting to the clinic today with complaints chest tightness, cough feels as though his asthma is flaring up. He contacted his doctor and they sent in a prescription for doxycycline and prednisone for him. He has not started this medication yet states he wanted some a to listen to his lungs prior to beginning the medication. Was seen by his primary care doctor on February 05 and given prescription for Augmentin and prednisone and felt better briefly after taking that medication however he got around some friends were sick and now he feels like he is getting ill again. Is coughing up some yellow phlegm. Denies any chest pain. MD elicited complaint: cough, nasal congestion and other (Chest congestion) Related Data Home Medications ?Medication ?Instructions ?Recorded ?Confirmed ?Last Taken ?Type atorvastatin 10 mg tablet 10 mg PO DAILY 10/12/20 10/12/20 Unknown History beclomethasone dipropionate 80 See Rx Instructions .Route .COMPLEX 10/12/20 10/12/20 Unknown History mcg/actuation aerosol inhaler montelukast 10 mg tablet 10 mg PO HS 10/12/20 10/12/20 Unknown History (Singulair) pantoprazole 40 mg tablet,delayed 40 mg PO Q12H 10/12/20 10/12/20 Unknown History release tamsulosin 0.4 mg capsule 0.4 mg PO DAILY 10/12/20 10/12/20 Unknown History albuterol sulfate 90 mcg/actuation inhalation 02/22/24 Unknown History aerosol inhaler atorvastatin 20 mg tablet mg 02/22/24 Unknown History dutasteride 0.5 mg capsule mg PO 02/22/24 Unknown History fluticasone propionate 50 intranasal 02/22/24 Unknown History mcg/actuation nasal spray,suspension Allergies Allergy/AdvReac Type Severity Reaction Status Date / Time Alpha-Gal Allergy Severe Anaphylactic Verified 02/22/24 15:08 (Elzauykwg-Xhevd-5,3-Gala Shock (Tkrunsyot-Mnssu-9,3-Galactose (Alph) Beef Containing Products Allergy Severe Anaphylaxis Verified 02/22/24 15:08 heparin Allergy Severe Anaphylactic Verified 02/22/24 15:08 Shock erythromycin base Allergy Unknown Unknown Verified 02/22/24 15:08 Alpha Gall Allergy Severe Anaphylaxis Uncoded 02/22/24 15:08 White Fish Allergy Severe Anaphylactic Uncoded 02/22/24 15:08 Shock Review of Systems Review of Systems: Pertinent positives per HPI. Patient denies any fever, chills, rash, headache, visual changes, dizziness,chest pain, palpitations, nausea, vomiting, diarrhea, constipation, abdominal pain, or any urinary issues. [facility] Past Medical History Medical History (Updated 02/22/24 @ 15:05 by Major Ferraro, CRISTIANE) Left foot drop Hyperlipidemia GERD (gastroesophageal reflux disease) Enlarged prostate Family History Family History Other Asthma Cerebrovascular accident Family history of congestive heart failure Family history of mental disorder Social History Social History Smoking status: Never smoker Alcohol intake: current Drinks per week: 5 Substance use: never Substance use type: does not use Gender identity (if verbalized by the patient): Male Sexual Orientation (if Verbalized by the Patient): Straight or Heterosexual Spiritual care concerns: No Comments At the time of my signature, I reviewed and agree with the nursing past medical, surgical, social, and family history. There is no relevant family history pertinent to the patient complaint. Exam Narrative: General: Well-developed, well nourished, in no apparent distress Head: Normocephalic, atraumatic Eyes: Pupils equally round and reactive to light bilaterally, EOM intact, sclera and conjunctive clear, no discharge, lids normal Ears: TMs intact and clear, ear canals clear, no drainage, grossly hearing normal. Nose: Nares patent, no discharge, no inflammation, no sinus tenderness. Mouth: Oral pharynx without lesions or masses, good dentition, MMM. Neck: Supple, trachea midline, no enlargement of anterior or posterior cervical nodes, no thyroid masses or goiter palpable. Cardio: Regular rate and rhythm, s1 and s2 normal, no murmur appreciated. Resp: Inspiratory wheezing, no rhonchi, rales, or rubs Course Course Emergency Course: Portions of this record may have been created with voice recognition software. Level of Care: Express Care Visit Vital Signs Vital signs: Vital Signs Temperature 37.3 C 02/22/24 14:40 Pulse Rate 97 02/22/24 14:40 Respiratory Rate 16 02/22/24 14:40 Blood Pressure 148/85 H 02/22/24 14:40 Pulse Oximetry 99 02/22/24 14:40 Temperature 37.3 C 02/22/24 14:40 Pulse Rate 97 02/22/24 14:40 Respiratory Rate 16 02/22/24 14:40 Blood Pressure 148/85 H 02/22/24 14:40 Pulse Oximetry 99 02/22/24 14:40 Vital signs reviewed MDM - URI/Sore Throat MDM Narrative Medical decision making narrative: At the time of visit patient is resting comfortably on the exam table. Patient appears to be nontoxic. Plan: I suspect patient has asthma exacerbation. He already has prescription for prednisone and doxycycline sent to the pharmacy. Lung sounds were wheezing in the clinic today but I do not feel as though he needs a breathing treatment at this time. Has been using his albuterol inhaler. Supportive measures were discussed with the patient and they voiced understanding discharge instructions and agrees to treatment plan. Return precautions reviewed Differential Diagnosis Differential diagnosis: Likely upper respiratory infection, otitis media, sinusitis, viral infection, bronchitis, influenza, pharyngitis and other (COVID) Discharge Plan Discharge Clinical Impression: Asthma exacerbation Qualifiers: Asthma severity: unspecified severity Asthma persistence: unspecified Qualified Code(s): J45.901 - Unspecified asthma with (acute) exacerbation Patient Disposition: Home, Self-Care Condition: Stable Instructions: Antibiotic Form, Asthma (ED) Additional Instructions: Take prescription medications as prescribed by your doctor Continue current medications Increase fluids and stay well hydrated Tylenol/motrin for pain/fever Flonase and OTC antihistamines as directed Vicks vapor rub to open sinuses Sinus rinses for congestion Cepacol spray, cough drops, throat lozenges, warm tea with honey/lemon, gargle salt water to soothe throat BRAT diet for diarrhea Clear liquids x 24 hours then advance as tolerated for nausea/vomiting Go to the ED if you develop a worsening in your condition- high fever not controlled by Tylenol or Motrin, dehydration, weakness, lethargy, shortness of breath, or chest pain. Follow up with your PCP in 3-5 days if symptoms persist. Patient Language: Cameroonian Prescriptions: No Action atorvastatin 10 mg tablet 10 mg PO DAILY beclomethasone dipropionate 80 mcg/actuation Aerosol See Rx Instructions .ROUTE .COMPLEX Rx Instructions: 2 puffs q12hr tamsulosin 0.4 mg Capsule 0.4 mg PO DAILY pantoprazole 40 mg Tablet,Delayed Release (Dr/Ec) 40 mg PO Q12H montelukast [Singulair] 10 mg Tablet 10 mg PO HS Follow-up/Referrals: UNKNOWN,DOCTOR [Primary Care Provider] - Time of Disposition: 15:05 Quality NIHSS Nursing Documentation ED NIHSS nursing documentation: reviewed/agree
== END 2024-02-22 15:12 | disposition home or self-care (01) ==
PROVIDERS: Emergency Provider Nurse Practitioner Family
DX: J45.901 Unspecified asthma with (acute) exacerbation (principal); E78.5 Hyperlipidemia, unspecified; K21.9 Gastro-esophageal reflux disease without esophagitis; N40.0 Benign prostatic hyperplasia without lower urinary tract symptoms
CPT/HCPCS: 99211; G0463